=== PATIENT | male | born 1960 | race Hispanic/Latino ===

== ENCOUNTER 2016-12-28 22:49 | Inpatient (IN) | payer SELFPAY ==
[2016-12-28 22:49] VITALS: BMI 34.8
[2016-12-29] MEDS ORDERED: Lidocaine 2% Jelly (Uro-Jet) ONE (00:01)
--- NOTE | 2016-12-29 00:39 | C.PDOC ---
History Of Present Illness 56 y/o male presents to emergency department, status post TURP 1 month ago, with complaint of hematuria onset this evening. Patient states he was then suddenly unable to urinate. Patient also c/o mild lower abdominal pain. Otherwise, denies fever, chills, nausea, vomiting, diarrhea, or other associated symptoms. Time Seen by Provider: 12/28/16 23:33 Chief Complaint (Nursing): Male Genitourinary History Per: Patient History/Exam Limitations: no limitations Onset/Duration Of Symptoms: Hrs Current Symptoms Are (Timing): Still Present Quality Of Discomfort: "Pain" Associated Symptoms: Urinary Symptoms. denies: Fever, Nausea, Vomiting, Diarrhea Recent travel outside of the [place]: No Past Medical History Reviewed: Historical Data, Nursing Documentation, Vital Signs Vital Signs: Last Vital Signs Temp 97.3 F L 12/28/16 22:57 Pulse 62 12/29/16 01:04 Resp 18 12/29/16 01:04 BP 121/62 12/29/16 01:04 Pulse Ox 98 12/29/16 01:04 - Medical History PMH: Arthritis, HTN, Hypercholesterolemia Family History: States: Unknown Family Hx - Social History Hx Alcohol Use: Yes (quit 5 years ago) Hx Substance Use: No - Immunization History Hx Influenza Vaccination: No Review Of Systems Except As Marked, All Systems Reviewed And Found Negative. Constitutional: Negative for: Fever, Chills Gastrointestinal: Positive for: Abdominal Pain. Negative for: Nausea, Vomiting Genitourinary: Positive for: Hematuria Skin: Negative for: Rash Physical Exam - Physical Exam Appears: Non-toxic, No Acute Distress Skin: Normal Color, Warm, Dry Head: Atraumatic, Normacephalic Oral Mucosa: Moist Chest: Symmetrical Cardiovascular: Rhythm Regular Respiratory: Normal Breath Sounds, No Rales, No Rhonchi, No Wheezing Gastrointestinal/Abdominal: Soft, Tenderness (mild lower abdominal tenderness), No Guarding, No Rebound Male Genital: No Circumcised Extremity: Normal ROM Neurological/Psych: Oriented x3 ED Course And Treatment - Laboratory Results Result Diagrams: 12/29/16 00:41 12/29/16 00:41 ECG: Interpreted By Me ECG Rhythm: Sinus Rhythm ECG Interpretation: No Acute Changes Rate From EC O2 Sat by Pulse Oximetry: 96 (RA) Pulse Ox Interpretation: Normal Medical Decision Making Medical Decision Making: Labs ordered and reviewed. Sifuentes easily passed initialy by nursing. Sifuentes replaced with large 3 way by me. Bladder irrigated by me with 2L sterile water. Hematuria lessened but continues. Review of patients medications shows he is on Plavix, which he restarted last week. Discussed with Dr. Fischer, agrees with admission but advises ICU, CBI and plat tx, probable OR in the morning. Discussed with Dr. Weston and Dr. Martini who agree with plan. Disposition - Disposition Disposition: HOSPITALIZED Disposition Time: 01:35 Condition: SERIOUS - Clinical Impression Clinical Impression: Hematuria - Scribe Statement The provider has reviewed the documentation as recorded by the Jorge L Pina Provider Attestation: All medical record entries made by the Jorge L were at my direction and personally dictated by me. I have reviewed the chart and agree that the record accurately reflects my personal performance of the history, physical exam, medical decision making, and the department course for this patient. I have also personally directed, reviewed, and agree with the discharge instructions and disposition.
[2016-12-29 00:44] LABS: BASO # 0.1 K/uL (0.0-0.2); BASO % 0.7 % (0.0-2.0); EOS # 0.2 K/uL (0.0-0.7); EOS % 1.7 % (0.0-4.0); HEMATOCRIT 30.7 % (35.0-51.0); LYMPH # 1.3 K/uL (1.0-4.3); LYMPH % 8.6 % (20.0-40.0); MEAN CELL VOLUME 78.3 fL (80.0-94.0); MEAN CORPUSCULAR HEMOGLOBIN 24.9 pg (27.0-31.0); MEAN CORPUSCULAR HGB CONC 31.8 g/dL (33.0-37.0); MEAN PLATELET VOLUME 6.7 fL (7.2-11.7); MONO # 0.9 K/uL (0.0-0.8); PLATELET COUNT 261 K/uL (130-400); RED CELL DISTRIBUTION WIDTH 14.9 % (11.5-14.5); WHITE BLOOD COUNT 14.6 K/uL (4.8-10.8)
[2016-12-29 01:00] LABS: POTASSIUM 4.8 mmol/L (3.6-5.2)
[2016-12-29 01:03] LABS: ALB/GLOB RATIO 1.1 (1.0-2.1); BILIRUBIN,TOTAL 0.3 mg/dL (0.2-1.3); TOTAL PROTEIN 6.3 g/dL (6.3-8.3)
[2016-12-29 01:05] LABS: INR 1.1
[2016-12-29 02:15] LABS: NEUTROPHIL 93 % (50-75); TOTAL CELLS COUNTED 100
--- NOTE | 2016-12-29 02:23 | CP.PCM.HP ---
History of Present Illness - History of Present Illness History of Present Illness: CC: Hematuria, Urinary Retention PAtient is a 56 year old male who presents to emergency department c/ o hematuria and urinary retention. He reports TURP 1 month ago for enlargement of prostate causing occasional urinary retention. Patient reports slight hematuria after TURP procedure which resolved "a few days after the procedure." He reports sudden return of hematuria this evening. Patient states he then suddenly was unable to urinate, and this made him come to the ED. Patient also c /o mild lower abdominal pain, that improved with ellison placement. Patient was recently restarted on Plavix, which he has been on since stroke in 12/2015. Pt had been off Plavix after surgery but restarted last week. He otherwise, denies fever, chills, nausea, vomiting, diarrhea, or other associated symptoms. PMHx: Stroke (12/2015 - pt denies residual weakness), HTN, Hyperlipidemia PSHx: TURP (11/30/2016) Fam Hx: denies SHx: tobacco - denies; Alcohol: 2-5 beers ppd for ~20 years but quit 5 years ago ; denies drug use; works as mechanical engineering coop Allergies: NKA PMD: Dr. Newsome ( [place] ) Present on Admission - Present on Admission Any Indicators Present on Admission: No Review of Systems - Constitutional Constitutional: absent: Chills, Fever - EENT Eyes: absent: Blurred Vision Ears: absent: Decreased Hearing - Cardiovascular Cardiovascular: absent: Chest Pain, Chest Pain at Rest, Dyspnea, Dyspnea on Exertion, Leg Edema - Respiratory Respiratory: absent: Cough, Dyspnea, Hemoptysis, Dyspnea on Exertion - Gastrointestinal Gastrointestinal: Abdominal Pain (suprapubic abdominal pain). absent: Nausea, Vomiting - Genitourinary Genitourinary: Difficulty Urinating, Dysuria, Hematuria (gautam red blood with clots), Bladder Distension - Musculoskeletal Musculoskeletal: absent: Back Pain, Numbness, Tingling Past Patient History - Past Medical History & Family History Past Medical History?: Yes - Past Social History Smoking Status: Never Smoked - CARDIAC Hx Hypercholesterolemia: Yes Hx Hypertension: Yes - PULMONARY Hx Respiratory Disorders: No - NEUROLOGICAL Hx Neurological Disorder: Yes HX Cerebrovascular Accident: Yes (DECEMBER 2015) - HEENT Hx HEENT Problems: Yes Hx Cataracts: Yes - RENAL Hx Chronic Kidney Disease: No - ENDOCRINE/METABOLIC Hx Endocrine Disorders: No - HEMATOLOGICAL/ONCOLOGICAL Hx Blood Disorders: No - INTEGUMENTARY Hx Dermatological Problems: No - MUSCULOSKELETAL/RHEUMATOLOGICAL Hx Arthritis: Yes - GASTROINTESTINAL Hx Gastrointestinal Disorders: No - GENITOURINARY/GYNECOLOGICAL Hx Genitourinary Disorders: Yes Hx Prostate Problems: Yes - PSYCHIATRIC Hx Substance Use: No - SURGICAL HISTORY Hx Surgeries: Yes (TESTICULAR SX) - ANESTHESIA Hx Anesthesia: Yes Hx Anesthesia Reactions: No Hx Malignant Hyperthermia: No Meds Allergies/Adverse Reactions: Allergies Allergy/AdvReac Type Severity Reaction Status Date / Time No Known Allergies Allergy Verified 11/23/16 11:32 Physical Exam - Constitutional Appears: Non-toxic, No Acute Distress - Head Exam Head Exam: ATRAUMATIC, NORMAL INSPECTION, NORMOCEPHALIC - Eye Exam Eye Exam: EOMI, PERRL. absent: Conjunctival injection, Scleral icterus - ENT Exam ENT Exam: Mucous Membranes Moist - Respiratory Exam Respiratory Exam: Clear to Auscultation Bilateral, NORMAL BREATHING PATTERN - Cardiovascular Exam Cardiovascular Exam: REGULAR RHYTHM, +S1, +S2 - GI/Abdominal Exam GI & Abdominal Exam: Normal Bowel Sounds, Soft, Tenderness (suprapubic). absent : Mass Additional comments: 3 way ellison noted - Exam Exam: Bladder Distension - Extremities Exam Extremities exam: Positive for: normal inspection. Negative for: pedal edema - Back Exam Back exam: absent: CVA tenderness (L), CVA tenderness (R) - Neurological Exam Neurological exam: Alert, Oriented x3 - Psychiatric Exam Psychiatric exam: Normal Affect, Normal Mood - Skin Skin Exam: Normal Color, Warm Results - Vital Signs Recent Vital Signs: Last Vital Signs Temp 97.3 F L 12/28/16 22:57 Pulse 62 12/29/16 01:04 Resp 18 12/29/16 01:04 BP 121/62 12/29/16 01:04 Pulse Ox 96 12/29/16 01:36 - Labs Result Diagrams: 12/29/16 06:00 12/29/16 06:00 Labs: Laboratory Results - last 24 hr 12/29/16 01:17 Blood Type O POSITIVE Antibody Screen Negative Assessment & Plan - Assessment and Plan (Free Text) Assessment: Hematuria Admit to ICU, all MGMT per ICU team Recent hx of TURP procedure (12/2016) Gautam, dark blood with clots in ellison NPO for possible Urologic procedure H/H: 9.8/30.7 on admission f/u Am labs Type and Cross Transfused one unit of PRBCs Urology consult: Dr. Fischer, help appreciated - f/u reccs Rocephin 1gm IV daily NS @ 100 cc/hr Continuous bladder irrigation BPH Continue home meds: Flomax 0.4 mg PO BID Finasteride 5mg PO Daily Elevated creatinine BUN/CR: 56/3.1 Family will bring recent labwork from outside facility to compare Hold BP meds Monitor Hypertension Pt normotensive on presentation Continue home med: Labetalol 200mg PO BID HOLD home meds: - Amlodipine 10mg PO Daily - Losartan 100mg PO Daily - Isosorbide Mononitrate 30 mg Daily NS @ 100 cc/hr Hx of stroke HOLD Plavix 75mg PO daily Prophylaxis HOLD Heparin 5000 units SC Q8H Protonix 40mg IV daily
--- NOTE | 2016-12-29 03:07 | CP.CCUPN ---
CCU Subjective - Physician Review Events Since Last Encounter (Free Text): 12/29/16 07:45 The Patient was seen and examined at the bedside, Medical records reviewed, all clinical/lab/hemodynamic/radiographic data were reviewed and management issues were discussed and formulated, 56 Y/O M with PMHx of HTN, BPH and S/p CVA in 12/2011 with no residual weakness who presents to emergency department c/o hematuria that suddenly started last evening Patient with BPH S/p TURP 1 month ago for and urinary retention, He had hematuria after the procedure but resolved few days later Patient is on Plavix probably fot the history of stroke In the ER, Pt hemodynamically, No CP/SBP CBI initiated CCU Objective - Vital Signs / Intake & Output Vital Signs (Last 4 hours): Vital Signs Pulse Resp BP Pulse Ox 12/29/16 01:36 96 12/29/16 01:04 62 18 121/62 98 - Physical Exam Head: Positive for: Atraumatic, Normocephalic. Negative for: Tenderness, Contusion Pupils: Positive for: PERRL. Negative for: Sluggish, Non-Reactive Extroacular Muscles: Positive for: EOMI. Negative for: Gaze Palsy, Entrapment Conjunctiva: Positive for: Normal. Negative for: Injected, Icteric Mouth: Positive for: Moist Mucous Membranes Pharnyx: Positive for: Normal. Negative for: ERYTHEMA Nose (Internal): Positive for: Normal Inspection Neck: Positive for: Normal Range of Motion, Trachea Midline. Negative for: Meningeal Signs, MIDLINE TENDERNESS, Paraspinal Tenderness, JVD, Lymphadenopathy , Bruit, Other Respiratory/Chest: Positive for: Clear to Auscultation, Good Air Exchange. Negative for: Respiratory Distress, Accessory Muscle Use, Wheezes, Rales, Rhonchi Cardiovascular: Positive for: Regular Rate and Rhythm, Normal S1, S2, Peripheal Pulses Present. Negative for: Murmurs, Irregular Rhythm, Tachycardic, Bradycardic Abdomen: Positive for: Normal Bowel Sounds. Negative for: Tenderness, Distention, Peritoneal Signs - Patient Studies Lab Studies: Lab Studies 12/29/16 Range/Units 01:17 Blood Type O POSITIVE Antibody Screen Negative Laboratory Results - last 24 hr 12/29/16 01:17 Blood Type O POSITIVE Antibody Screen Negative Review of Systems - Cardiovascular Cardiovascular: absent: As Per HPI, Acrocyanosis, Chest Pain, Chest Pain at Rest , Chest Pain with Activity, Claudication, Diaphoresis, Dyspnea, Dyspnea on Exertion, Edema, Irregular Heart Rhythm, Pain Radiating to Arm/Neck/Jaw, Leg Edema, Leg Ulcers, Lightheadedness, Orthopnea, Palpitations, Paroxysmal Nocturnal Dyspnea, Pedal Edema, Radiating Pain, Rapid Heart Rate, Slow Heart Rate, Syncope, Other, UNREMARKABLE - Respiratory Respiratory: absent: As Per HPI, Cough, Dyspnea, Hemoptysis, Dyspnea on Exertion , Wheezing, Snoring, Stridor, Pain on Inspiration, Chest Congestion, Excessive Mucous Production, Change in Mucous Color, Pain with Coughing, Other, UNREMARKABLE Assessment/Plan (1) Hematuria Current Visit: Yes Status: Acute (2) HTN (hypertension) Current Visit: Yes Status: Acute (3) History of stroke Current Visit: Yes Status: Acute
[2016-12-29] MEDS: Sodium Chloride 0.9% 1,000 ML IV SCH ×3 (04:26→23:46)
[2016-12-29 06:42] LABS: BASO % 0.3 % (0.0-2.0); EOS # 0.1 K/uL (0.0-0.7); EOS % 0.5 % (0.0-4.0); LYMPH # 1.1 K/uL (1.0-4.3); LYMPH % 7.7 % (20.0-40.0); MEAN CELL VOLUME 78.9 fL (80.0-94.0); MEAN CORPUSCULAR HEMOGLOBIN 25.3 pg (27.0-31.0); MEAN PLATELET VOLUME 7.3 fL (7.2-11.7); MONO # 0.6 K/uL (0.0-0.8); MONO % 4.6 % (0.0-10.0); PLATELET COUNT 261 K/uL (130-400); RED CELL DISTRIBUTION WIDTH 15.1 % (11.5-14.5); WHITE BLOOD COUNT 13.8 K/uL (4.8-10.8)
[2016-12-29 06:44] LABS: INR 1.1
[2016-12-29 06:49] LABS: POTASSIUM 5.4 mmol/L (3.6-5.2)
[2016-12-29 06:51] LABS: ALB/GLOB RATIO 1.3 (1.0-2.1); BILIRUBIN,TOTAL 0.4 mg/dL (0.2-1.3); PHOSPHOROUS 5.1 mg/dL (2.5-4.5); TOTAL PROTEIN 6.3 g/dL (6.3-8.3)
[2016-12-29 06:52] LABS: MAGNESIUM 2.1 mg/dL (1.6-2.3)
[2016-12-29] MEDS: cefTRIAXone IV 1 gm in Dextros 50 ML IVPB SCH (07:45)
[2016-12-29 07:49] LABS: BASOPHIL 1 % (0-2); NEUTROPHIL 85 % (50-75); TOTAL CELLS COUNTED 100
[2016-12-29] MEDS ORDERED: Labetalol 25mg/5ml Syringe IVP ONE (09:40)
[2016-12-29 10:12] LABS: PLT BASE COUNT 271 K/uL
[2016-12-29 10:13] LABS: FUNCTIONING PLTS 81 K/uL; PLT(ADP) 190 K/uL
[2016-12-29 12:18] LABS: BASO # 0.1 K/uL (0.0-0.2); BASO % 0.3 % (0.0-2.0); EOS # 0.1 K/uL (0.0-0.7); EOS % 0.4 % (0.0-4.0); LYMPH # 1.1 K/uL (1.0-4.3); MEAN CELL VOLUME 78.7 fL (80.0-94.0); MEAN CORPUSCULAR HEMOGLOBIN 24.8 pg (27.0-31.0); MEAN CORPUSCULAR HGB CONC 31.6 g/dL (33.0-37.0); MONO # 1.1 K/uL (0.0-0.8); PLATELET COUNT 279 K/uL (130-400); RED CELL DISTRIBUTION WIDTH 15.2 % (11.5-14.5); WHITE BLOOD COUNT 15.5 K/uL (4.8-10.8)
[2016-12-29 12:41] LABS: EOSINOPHIL 1 % (0-4); NEUTROPHIL 90 % (50-75); TOTAL CELLS COUNTED 100
[2016-12-29] MEDS ORDERED: Metoprolol 1 mg/ml Inj IVP ONE (14:34)
[2016-12-29] MEDS ORDERED: Midazolam 2 MG/2 ML VIAL ONE (16:04)
[2016-12-29] MEDS ORDERED: Propofol 10 mg/ml Inj (20 ML) ONE (16:04)
[2016-12-29] MEDS ORDERED: Phenylephrine 10 mg/ml Inj ONE (16:06)
--- NOTE | 2016-12-29 17:05 | PCM.URO ---
Urology Progress Note - Objective Lab Results Last 24 Hours: Laboratory Results - last 24 hr 12/29/16 12/29/16 12/29/16 01:17 06:00 10:01 WBC 13.8 H RBC 3.80 L Hgb 9.6 L Hct 30.0 L MCV 78.9 L MCH 25.3 L MCHC 32.0 L RDW 15.1 H Plt Count 261 MPV 7.3 Neut % (Auto) 86.9 H Lymph % (Auto) 7.7 L [place] % (Auto) 4.6 Eos % (Auto) 0.5 Baso % (Auto) 0.3 Neut # 12.0 H Lymph # 1.1 [place] # 0.6 Eos # 0.1 Baso # 0.0 Neutrophils % (Manual) 85 H Band Neutrophils % 3 H Lymphocytes % (Manual) 8 L Monocytes % (Manual) 3 Eosinophils % (Manual) Basophils % (Manual) 1 Platelet Estimate Normal Poikilocytosis (manual Slight Anisocytosis (manual) Slight Ovalocytes Slight Raoul Cells Slight PT 12.3 H INR 1.1 APTT 26 Plt Function Assay 81 Sodium 136 Potassium 5.4 H Chloride 102 Carbon Dioxide 18 L Anion Gap 21 H BUN 56 H Creatinine 3.1 H Est GFR ( Amer) 25 Est GFR (Non-Af Amer) 21 Random Glucose 107 Calcium 8.0 L Phosphorus 5.1 H Magnesium 2.1 Total Bilirubin 0.4 AST 21 ALT 19 L D Alkaline Phosphatase 57 Total Protein 6.3 Albumin 3.5 Globulin 2.8 Albumin/Globulin Ratio 1.3 Blood Type O POSITIVE Antibody Screen Negative 12/29/16 12:15 WBC 15.5 H RBC 3.05 L Hgb 7.6 L D Hct 24.0 L MCV 78.7 L MCH 24.8 L MCHC 31.6 L RDW 15.2 H Plt Count 279 MPV 7.0 L Neut % (Auto) 85.3 H Lymph % (Auto) 7.0 L [place] % (Auto) 7.0 Eos % (Auto) 0.4 Baso % (Auto) 0.3 Neut # 13.3 H Lymph # 1.1 [place] # 1.1 H Eos # 0.1 Baso # 0.1 Neutrophils % (Manual) 90 H Band Neutrophils % 1 Lymphocytes % (Manual) 7 L Monocytes % (Manual) 1 Eosinophils % (Manual) 1 Basophils % (Manual) Platelet Estimate Normal Poikilocytosis (manual Slight Anisocytosis (manual) Slight Ovalocytes Slight [place] Cells PT INR APTT Plt Function Assay Sodium Potassium Chloride Carbon Dioxide Anion Gap BUN Creatinine Est GFR ( Amer) Est GFR (Non-Af Amer) Random Glucose Calcium Phosphorus Magnesium Total Bilirubin AST ALT Alkaline Phosphatase Total Protein Albumin Globulin Albumin/Globulin Ratio Blood Type Antibody Screen Intake & Output: Intake & Output 12/28/16 12/29/16 12/29/16 18:59 06:59 18:59 Intake Total 800 23792 Output Total 925 820 Balance -125 61047 Weight 220 lb 6 oz Intake: Intake, IV Amount 500 1302 Left Hand 400 100 Right Hand 902 Right Wrist 300 Left Forearm 100 Oral 0 Blood Product 577 Apheresis Platelets Acda 577 Lr Unit [id number] Other 300 50573 Apheresis Platelets Acda 30 Lr Unit [id number] Output: Urine 925 820 3-way Urethral 800 0 Other: Voiding Method 3-way Sifuentes with CBI # Bowel Movements 0 Vital Signs: Vital Signs - 24 hr 12/29/16 12/29/16 12/29/16 01:04 01:36 03:23 Temperature 97.6 F Pulse Rate 62 65 Pulse Rate [ Bilateral * Pedal & Posterior Tibial] Respiratory 18 18 Rate Blood Pressure 121/62 110/69 O2 Sat by Pulse 98 96 96 Oximetry 12/29/16 12/29/16 12/29/16 03:41 03:53 04:00 Temperature Pulse Rate 50 L 62 Pulse Rate [ 58 L Bilateral * Pedal & Posterior Tibial] Respiratory 20 16 Rate Blood Pressure 121/79 124/83 O2 Sat by Pulse 97 Oximetry 12/29/16 12/29/16 12/29/16 05:00 05:04 06:00 Temperature 97.6 F Pulse Rate 56 L 60 64 Pulse Rate [ Bilateral * Pedal & Posterior Tibial] Respiratory 20 21 15 Rate Blood Pressure 128/74 128/74 O2 Sat by Pulse Oximetry 12/29/16 12/29/16 12/29/16 06:01 07:00 07:25 Temperature Pulse Rate 68 67 Pulse Rate [ Bilateral * Pedal & Posterior Tibial] Respiratory 14 15 Rate Blood Pressure 131/74 130/69 O2 Sat by Pulse Oximetry 12/29/16 12/29/16 12/29/16 08:00 09:00 09:20 Temperature 97.8 F Pulse Rate 76 79 77 Pulse Rate [ Bilateral * Pedal & Posterior Tibial] Respiratory 15 17 24 Rate Blood Pressure 131/87 146/89 177/105 H O2 Sat by Pulse 96 Oximetry 12/29/16 12/29/16 12/29/16 09:34 09:35 09:49 Temperature 98.0 F Pulse Rate 81 80 Pulse Rate [ Bilateral * Pedal & Posterior Tibial] Respiratory 22 19 Rate Blood Pressure 168/95 H 149/86 O2 Sat by Pulse Oximetry 12/29/16 12/29/16 12/29/16 09:50 10:01 10:04 Temperature 97.7 F Pulse Rate 77 71 75 Pulse Rate [ Bilateral * Pedal & Posterior Tibial] Respiratory 15 12 16 Rate Blood Pressure 149/86 119/80 O2 Sat by Pulse Oximetry 12/29/16 12/29/16 12/29/16 10:11 10:19 10:20 Temperature 97.7 F Pulse Rate 76 76 74 Pulse Rate [ Bilateral * Pedal & Posterior Tibial] Respiratory 12 19 10 L Rate Blood Pressure 119/80 122/72 122/72 O2 Sat by Pulse Oximetry 12/29/16 12/29/16 12/29/16 10:29 10:35 10:49 Temperature 97.8 F Pulse Rate 79 86 81 Pulse Rate [ Bilateral * Pedal & Posterior Tibial] Respiratory 18 22 20 Rate Blood Pressure 109/78 141/96 H O2 Sat by Pulse Oximetry 12/29/16 12/29/16 12/29/16 10:50 11:02 11:05 Temperature Pulse Rate 86 80 82 Pulse Rate [ Bilateral * Pedal & Posterior Tibial] Respiratory 20 21 20 Rate Blood Pressure 141/96 H 153/80 H O2 Sat by Pulse Oximetry 12/29/16 12/29/16 12/29/16 11:20 11:35 11:49 Temperature Pulse Rate 85 83 75 Pulse Rate [ Bilateral * Pedal & Posterior Tibial] Respiratory 21 22 19 Rate Blood Pressure 158/92 H 142/89 O2 Sat by Pulse Oximetry 12/29/16 12/29/16 12/29/16 11:50 12:00 12:05 Temperature 98.2 F Pulse Rate 85 82 Pulse Rate [ Bilateral * Pedal & Posterior Tibial] Respiratory 17 17 Rate Blood Pressure 137/95 H 163/94 H O2 Sat by Pulse 97 Oximetry 12/29/16 12/29/16 12/29/16 12:20 12:35 12:50 Temperature 98.0 F Pulse Rate 80 80 81 Pulse Rate [ Bilateral * Pedal & Posterior Tibial] Respiratory 18 20 21 Rate Blood Pressure 162/97 H 165/100 H 170/98 H O2 Sat by Pulse Oximetry 12/29/16 12/29/16 12/29/16 13:00 13:05 13:07 Temperature 98.8 F Pulse Rate 81 88 Pulse Rate [ Bilateral * Pedal & Posterior Tibial] Respiratory 22 20 Rate Blood Pressure 187/101 H O2 Sat by Pulse 96 Oximetry 12/29/16 12/29/16 12/29/16 13:20 13:35 13:50 Temperature 98.9 F 98.8 F Pulse Rate 83 85 83 Pulse Rate [ Bilateral * Pedal & Posterior Tibial] Respiratory 18 19 19 Rate Blood Pressure 184/98 H 176/94 H 180/92 H O2 Sat by Pulse 97 96 Oximetry 12/29/16 12/29/16 12/29/16 14:00 14:05 14:20 Temperature 98.8 F Pulse Rate 83 83 81 Pulse Rate [ Bilateral * Pedal & Posterior Tibial] Respiratory 18 16 18 Rate Blood Pressure 181/87 H 187/85 H O2 Sat by Pulse 97 Oximetry 12/29/16 12/29/16 12/29/16 14:35 14:50 15:00 Temperature 98.6 F 98.8 F Pulse Rate 89 96 H 87 Pulse Rate [ Bilateral * Pedal & Posterior Tibial] Respiratory 19 22 22 Rate Blood Pressure 176/95 H 171/91 H O2 Sat by Pulse 97 96 Oximetry 12/29/16 15:05 Temperature Pulse Rate 92 H Pulse Rate [ Bilateral * Pedal & Posterior Tibial] Respiratory 11 L Rate Blood Pressure 148/95 H O2 Sat by Pulse Oximetry
[2016-12-29] MEDS: Metoprolol 1 mg/ml Inj IVP SCH (18:26)
--- NOTE | 2016-12-29 19:32 | CON ---
DATE: 12/29/2016 REASON FOR ADMISSION: Gross hematuria. HISTORY OF PRESENT ILLNESS: A very pleasant gentleman. In the end of 11/2016 I did a PVP GreenLight laser TURP. At that time, we had stopped his Plavix and subsequently he did very well. We took out his Sifuentes. He was urinating. Everything was good in speaking to the patient's daughter. Then today , at 2 in the evening hours, the daughter called me that he was bleeding out of nowhere. With furthe r questioning though, he had been having a drink or 2 and then he was having difficulty moving his jonatan wels and ran into constipation, and then when he was pushing upon his bowels he had bleeding from his prostate. He is now being admitted. I spoke to the ER. See the plan listed below. PAST MEDICAL AND SURGICAL HISTORY: Otherwise, no change. REVIEW OF SYSTEMS: Listed above. He is a relatively healthy gentleman in no apparent distress. Vit al signs have been normal. PHYSICAL EXAMINATION: GENERAL: A well-nourished male in no apparent distress. VITAL SIGNS: Noted. GENITOURINARY: We then inserted a Sifuentes catheter via the urethra to see if this would assist. He is just having a tremendous amount of bleeding noted. DIAGNOSES: Gross hematuria in the postoperative period after a PVP GreenLight transurethral resectio n of the prostate. The patient resumed his medications. PLAN: It is mostly a coagulopathy issue. Bleeding is going to be from the prostate in origin. If w e cannot stop it, we will consider other options; will consider cystoscopy, evacuation of clots. The n will consider other options of cauterization, fulgurations, etc. Then again, there are other measu res. Sometimes even necessary removing the whole prostate. There are a lot of options. But it is d efinitely very greatly concerning. I explained this to the daughter. That is why we had him come in . Bleeding in this postop period when you on Plavix is very concerning, especially after having not ble d. ICU monitoring. My recommendation is for transfusions of blood products of packed red blood cells an d also transfusion of platelets specifically, especially given his history. Then we will continue to monitor patient. Margarito Fischer MD cc: [phone] TT: 12/29/2016 19:32:02 Confirmation # [id number] Dictation # [id number] mn
--- NOTE | 2016-12-29 19:43 | OP ---
PROCEDURE DATE: 12/29/2016 PREOPERATIVE DIAGNOSES: Gross hematuria, bleeding diathesis, prostatic bleeding, anemia, clot urinar y retention. POSTOPERATIVE DIAGNOSES: Gross hematuria, bleeding diathesis, prostatic bleeding, anemia, clot urina ry retention. PROCEDURE: Cystoscopy and evacuation of clots, attempted fulguration, but no specific bleeding sites could be identified; washout of clots and insertion of a Sifuentes catheter with continuous bladder irri gation drainage. COMPLICATIONS: There were no complications. FINDINGS: Normal anterior urethra, no strictures of the healing prostatic tissue, fairly easy to get the scope in; a tremendous amount of bleeding and not able to get a good clear visualization a nd the bladder mucosa again was very hard to identify, it is there, just a tremendous amount of blood . At the termination of the procedure, the patient still has bleeding, but we put a CBI Sifuentes with 40-5 0 mL in the balloon and we drained it clear. Even though it was grossly bloody, it eventually pinked out. INDICATIONS: See the history and physical and consultation. This is a very pleasant gentleman who h ad a GreenLight laser TURP, who came in now and we resumed his Plavix where he also was drinking a li ttle and then he was running into some constipation and then he started bleeding. He had his operati on about 11/30; today is 12/29 so it is literally about 4 weeks ago where we did the procedure, a PVP G reenLight laser TURP, and he was doing well. I had spoken to the patient a couple of times after we removed his catheter initially. Last night I received a phone call, see the consultation note, a eliot ne call from the daughter that he was bleeding. They brought him to the hospital immediately. Plavi x bleeding after TURP is sometimes very, very concerning obviously. I had recommended transfusions of both platelets and blood. We now brought him here to the OR. The patient has been bleeding for the day, although it looks like it is pantry cook than before. The patient was also seen by this morning. We discussed the o ptions with the patient and the daughter and the risks, benefits and alternatives. He is here now fo r the above procedure. PROCEDURE: After obtaining informed consent, the patient was placed on the table, routine monitors p laced and a timeout was called to confirm the patient and positioning. We removed the old Sifuentes catheter and we inserted a new catheter. There was just a tremendous amount of blood. What we did was we drained the bladder, we irrigated it out, we inspected it carefully and there was really no good bleeding site per se, it was just raw. It looks like otherwise, except for this redne ss and I took multiple pictures, that it is normal postop healing. So we irrigated a tremendous amount of bleeding noted, some with clots. We now inserted a 3-way Sifuentes catheter, 24-Vincentian, and left it with and irrigated again. It is slightly pantry cook in color and appearance. I do want to mention we did do a rectal exam. His abdomen is difficult to evaluate for distention se condary to body habitus, but the catheter is certainly in place and draining and irrigates well both ways, but we will need to monitor it and keep an eye on it. DIAGNOSES: Gross hematuria. The patient underwent a cystoscopy with evacuation of clots. There was not one specific area that we could fulgurate, and therefore, we did not. The patient tolerated the procedure well without complication. I have spoken to the ICU as well. Our recommendation is clear to transfuse platelets, to transfuse b lood products and not much more urologically can be done. The patient is off his Plavix. There is a report in the computer about normal platelet function, so we have to just keep an eye on i t for now. If it does not resolve will need to very carefully reassess bleeding sources. In fact, I will be ordering this as well and then further plans will follow. Margarito Fischer MD cc: [phone] TT: 12/29/2016 19:43:20 gale
[2016-12-29 23:00] LABS: BASO # 0.1 K/uL (0.0-0.2); BASO % 0.7 % (0.0-2.0); EOS % 0.3 % (0.0-4.0); HEMATOCRIT 25.1 % (35.0-51.0); LYMPH # 1.3 K/uL (1.0-4.3); LYMPH % 11.9 % (20.0-40.0); MEAN CELL VOLUME 79.7 fL (80.0-94.0); MEAN CORPUSCULAR HEMOGLOBIN 25.8 pg (27.0-31.0); MEAN CORPUSCULAR HGB CONC 32.4 g/dL (33.0-37.0); MEAN PLATELET VOLUME 7.1 fL (7.2-11.7); MONO # 1.1 K/uL (0.0-0.8); MONO % 9.9 % (0.0-10.0); NRBC % 0.1 % (0.0-2.0); RED CELL DISTRIBUTION WIDTH 14.8 % (11.5-14.5)
[2016-12-29 23:13] LABS: POTASSIUM 5.1 mmol/L (3.6-5.2)
[2016-12-29 23:15] LABS: BILIRUBIN,TOTAL 0.5 mg/dL (0.2-1.3)
[2016-12-29 23:16] LABS: ALB/GLOB RATIO 1.2 (1.0-2.1); CALCIUM 7.4 mg/dl (8.6-10.4); PHOSPHOROUS 6.3 mg/dL (2.5-4.5); TOTAL PROTEIN 5.3 g/dL (6.3-8.3)
[2016-12-29 23:17] LABS: MAGNESIUM 2.1 mg/dL (1.6-2.3)
[2016-12-30] MEDS: Metoprolol 1 mg/ml Inj IVP SCH ×5 (00:32→23:20)
[2016-12-30] MEDS: cefTRIAXone IV 1 gm in Dextros 50 ML IVPB SCH (04:16)
[2016-12-30 06:22] LABS: BASO # 0.1 K/uL (0.0-0.2); BASO % 0.5 % (0.0-2.0); EOS # 0.2 K/uL (0.0-0.7); EOS % 1.7 % (0.0-4.0); HEMATOCRIT 24.4 % (35.0-51.0); LYMPH # 1.6 K/uL (1.0-4.3); LYMPH % 14.5 % (20.0-40.0); MEAN CELL VOLUME 78.9 fL (80.0-94.0); MEAN PLATELET VOLUME 7.2 fL (7.2-11.7); MONO # 1.1 K/uL (0.0-0.8); MONO % 9.4 % (0.0-10.0); RED CELL DISTRIBUTION WIDTH 15.4 % (11.5-14.5); WHITE BLOOD COUNT 11.3 K/uL (4.8-10.8)
[2016-12-30 06:28] LABS: POTASSIUM 4.3 mmol/L (3.6-5.2)
[2016-12-30 06:31] LABS: BILIRUBIN,TOTAL 0.3 mg/dL (0.2-1.3); PHOSPHOROUS 5.4 mg/dL (2.5-4.5); TOTAL PROTEIN 5.2 g/dL (6.3-8.3)
[2016-12-30 06:32] LABS: CALCIUM 7.2 mg/dl (8.6-10.4); MAGNESIUM 2.1 mg/dL (1.6-2.3)
[2016-12-30] MEDS: Sodium Chloride 0.9% 1,000 ML IV SCH ×3 (09:27→23:30)
--- NOTE | 2016-12-30 17:04 | CP.CCUPN ---
CCU Subjective - Physician Review Events Since Last Encounter (Free Text): 12/30/16 17:00 patient is clinically stable, doing exercises in his room. CCU Objective - Vital Signs / Intake & Output Vital Signs (Last 4 hours): Vital Signs Pulse Resp BP Pulse Ox 12/30/16 15:07 71 21 169/84 H 96 12/30/16 15:00 70 22 97 12/30/16 14:07 64 19 129/52 L 95 12/30/16 14:00 69 19 93 L 12/30/16 13:07 81 14 160/62 H 98 12/30/16 13:06 94 H 15 95 Intake and Output (Last 8hrs): Intake & Output 12/30/16 12/30/16 12/30/16 06:59 14:59 22:59 Intake Total 5690 35229 2900 Output Total 1000 1010 250 Balance 4690 74360 2650 Weight 220 lb 12.8 oz Intake: Intake, IV Amount 785 700 Right Hand 285 Right Wrist 500 700 Oral 360 740 Blood Product 285 Apheresis Rbc Cp2d As3 Lr 285 1st Unit [id number] Other 4260 70711 2900 Apheresis Rbc Cp2d As3 Lr 60 1st Unit [id number] Output: Urine 1000 1010 250 Other: # Bowel Movements 0 0 - Physical Exam Head: Positive for: Atraumatic, Normocephalic. Negative for: Tenderness, Contusion Pupils: Positive for: PERRL. Negative for: Sluggish, Non-Reactive Extroacular Muscles: Positive for: EOMI. Negative for: Gaze Palsy, Entrapment Conjunctiva: Positive for: Normal. Negative for: Injected, Icteric Mouth: Positive for: Moist Mucous Membranes Pharnyx: Positive for: Normal. Negative for: ERYTHEMA Nose (Internal): Positive for: Normal Inspection Neck: Positive for: Normal Range of Motion, Trachea Midline. Negative for: Meningeal Signs, MIDLINE TENDERNESS, Paraspinal Tenderness, JVD, Lymphadenopathy , Bruit, Other Respiratory/Chest: Positive for: Clear to Auscultation, Good Air Exchange. Negative for: Respiratory Distress, Accessory Muscle Use, Wheezes, Rales, Rhonchi Cardiovascular: Positive for: Regular Rate and Rhythm, Normal S1, S2, Peripheal Pulses Present. Negative for: Murmurs, Irregular Rhythm, Tachycardic, Bradycardic Abdomen: Positive for: Normal Bowel Sounds. Negative for: Tenderness, Distention, Peritoneal Signs - Medications Active Medications: Active Medications Generic Name Dose Route Start Last Admin Trade Name Yamileth PRN Reason Stop Dose Admin Finasteride 5 mg 12/29/16 10:00 12/30/16 09:27 Proscar PO 5 mg DAILY [facility] Administration Sodium Chloride 1,000 mls @ 100 mls/hr 12/29/16 03:15 12/30/16 12:40 Sodium Chloride 0.9% IV 100 mls/hr .Q10H [facility] Administration Ceftriaxone Sodium 50 mls @ 100 mls/hr 12/29/16 05:00 12/30/16 04:16 Rocephin Iv 1 Gm Duplex IVPB 100 mls/hr Q24H [facility] Administration Labetalol HCl 200 mg 12/29/16 10:00 12/30/16 09:28 Trandate PO 200 mg BID [facility] Administration Metoprolol Tartrate 5 mg 12/29/16 18:15 12/30/16 12:56 Lopressor IVP 5 mg Q6H [facility] Administration Pantoprazole Sodium 40 mg 12/29/16 10:15 12/30/16 09:27 Protonix Inj IVP 40 mg DAILY [facility] Administration Tamsulosin HCl 0.4 mg 12/29/16 10:00 12/30/16 09:27 Flomax PO 0.4 mg DAILY [facility] Administration - Patient Studies Lab Studies: Microbiology Studies 12/29/16 03:42 MRSA Culture (Admit) - Final Nose MRSA NOT DETECTED Lab Studies 12/30/16 12/30/16 12/29/16 Range/Units 06:15 06:11 22:50 WBC 11.3 H 11.0 H (4.8-10.8) K/uL RBC 3.09 L 3.15 L (4.40-5.90) Mil/uL Hgb 8.1 L 8.1 L (12.0-18.0) g/dL Hct 24.4 L 25.1 L (35.0-51.0) % MCV 78.9 L 79.7 L (80.0-94.0) fL MCH 26.0 L 25.8 L (27.0-31.0) pg MCHC 33.0 32.4 L (33.0-37.0) g/dL RDW 15.4 H 14.8 H (11.5-14.5) % Plt Count 212 227 (130-400) K/uL MPV 7.2 7.1 L (7.2-11.7) fL Neut % (Auto) 73.9 77.2 H (50.0-75.0) % Lymph % (Auto) 14.5 L 11.9 L (20.0-40.0) % [place] % (Auto) 9.4 9.9 (0.0-10.0) % Eos % (Auto) 1.7 0.3 (0.0-4.0) % Baso % (Auto) 0.5 0.7 (0.0-2.0) % Neut # 8.3 H 8.5 H (1.8-7.0) K/uL Lymph # 1.6 1.3 (1.0-4.3) K/uL [place] # 1.1 H 1.1 H (0.0-0.8) K/uL Eos # 0.2 0.0 (0.0-0.7) K/uL Baso # 0.1 0.1 (0.0-0.2) K/uL Sodium 138 136 (132-148) mmol/L Potassium 4.3 5.1 (3.6-5.2) mmol/L Chloride 106 102 (98-107) mmol/L Carbon Dioxide 22 22 (22-30) mmol/L Anion Gap 14 17 (10-20) BUN 54 H 59 H (9-20) mg/dL Creatinine 3.1 H 3.5 H (0.8-1.5) MG/DL Est GFR ( Amer) 25 22 Est GFR (Non-Af Amer) 21 18 Random Glucose 87 101 (75-110) mg/dL Calcium 7.2 L 7.4 L (8.6-10.4) mg/dl Phosphorus 5.4 H 6.3 H (2.5-4.5) mg/dL Magnesium 2.1 2.1 (1.6-2.3) mg/dL Total Bilirubin 0.3 0.5 (0.2-1.3) mg/dL AST 14 L 16 L D (17-59) U/L ALT 30 18 L (21-72) U/L Alkaline Phosphatase 43 44 (38-126) U/L Total Protein 5.2 L 5.3 L (6.3-8.3) g/dL Albumin 2.6 L 2.9 L (3.5-5.0) g/dL Globulin 2.6 2.3 (2.2-3.9) gm/dL Albumin/Globulin Ratio 1.0 1.2 (1.0-2.1) Blood Type Antibody Screen 12/29/16 Range/Units 01:17 WBC (4.8-10.8) K/uL RBC (4.40-5.90) Mil/uL Hgb (12.0-18.0) g/dL Hct (35.0-51.0) % MCV (80.0-94.0) fL MCH (27.0-31.0) pg MCHC (33.0-37.0) g/dL RDW (11.5-14.5) % Plt Count (130-400) K/uL MPV (7.2-11.7) fL Neut % (Auto) (50.0-75.0) % Lymph % (Auto) (20.0-40.0) % [place] % (Auto) (0.0-10.0) % Eos % (Auto) (0.0-4.0) % Baso % (Auto) (0.0-2.0) % Neut # (1.8-7.0) K/uL Lymph # (1.0-4.3) K/uL [place] # (0.0-0.8) K/uL Eos # (0.0-0.7) K/uL Baso # (0.0-0.2) K/uL Sodium (132-148) mmol/L Potassium (3.6-5.2) mmol/L Chloride (98-107) mmol/L Carbon Dioxide (22-30) mmol/L Anion Gap (10-20) BUN (9-20) mg/dL Creatinine (0.8-1.5) MG/DL Est GFR ( Amer) Est GFR (Non-Af Amer) Random Glucose (75-110) mg/dL Calcium (8.6-10.4) mg/dl Phosphorus (2.5-4.5) mg/dL Magnesium (1.6-2.3) mg/dL Total Bilirubin (0.2-1.3) mg/dL AST (17-59) U/L ALT (21-72) U/L Alkaline Phosphatase (38-126) U/L Total Protein (6.3-8.3) g/dL Albumin (3.5-5.0) g/dL Globulin (2.2-3.9) gm/dL Albumin/Globulin Ratio (1.0-2.1) Blood Type O POSITIVE Antibody Screen Negative Laboratory Results - last 24 hr 12/29/16 12/29/16 12/30/16 01:17 22:50 06:11 WBC 11.0 H 11.3 H RBC 3.15 L 3.09 L Hgb 8.1 L 8.1 L Hct 25.1 L 24.4 L MCV 79.7 L 78.9 L MCH 25.8 L 26.0 L MCHC 32.4 L 33.0 RDW 14.8 H 15.4 H Plt Count 227 212 MPV 7.1 L 7.2 Neut % (Auto) 77.2 H 73.9 Lymph % (Auto) 11.9 L 14.5 L [place] % (Auto) 9.9 9.4 Eos % (Auto) 0.3 1.7 Baso % (Auto) 0.7 0.5 Neut # 8.5 H 8.3 H Lymph # 1.3 1.6 [place] # 1.1 H 1.1 H Eos # 0.0 0.2 Baso # 0.1 0.1 Sodium 136 Potassium 5.1 Chloride 102 Carbon Dioxide 22 Anion Gap 17 BUN 59 H Creatinine 3.5 H Est GFR ( Amer) 22 Est GFR (Non-Af Amer) 18 Random Glucose 101 Calcium 7.4 L Phosphorus 6.3 H Magnesium 2.1 Total Bilirubin 0.5 AST 16 L D ALT 18 L Alkaline Phosphatase 44 Total Protein 5.3 L Albumin 2.9 L Globulin 2.3 Albumin/Globulin Ratio 1.2 Blood Type O POSITIVE Antibody Screen Negative 12/30/16 06:15 WBC RBC Hgb Hct MCV MCH MCHC RDW Plt Count MPV Neut % (Auto) Lymph % (Auto) [place] % (Auto) Eos % (Auto) Baso % (Auto) Neut # Lymph # [place] # Eos # Baso # Sodium 138 Potassium 4.3 Chloride 106 Carbon Dioxide 22 Anion Gap 14 BUN 54 H Creatinine 3.1 H Est GFR ( Amer) 25 Est GFR (Non-Af Amer) 21 Random Glucose 87 Calcium 7.2 L Phosphorus 5.4 H Magnesium 2.1 Total Bilirubin 0.3 AST 14 L ALT 30 Alkaline Phosphatase 43 Total Protein 5.2 L Albumin 2.6 L Globulin 2.6 Albumin/Globulin Ratio 1.0 Blood Type Antibody Screen Review of Systems - Review of Systems All systems: reviewed and no additional remarkable complaints except - Genitourinary Genitourinary: Hematuria Critical Care Progress Note - Nutrition Nutrition: Nutrition Category Date Time Status Regular Diet [DIET] Diets 12/29/16 Lunch Active Assessment/Plan (1) Hematuria Assessment and plan: 56 Y/O M with PMHx of HTN, BPH and S/p CVA in 12/2011 with no residual weakness who presents to emergency department c/o hematuria s/p TURP ~1 month ago. Neuro: Alert and oriented 3 Pulm: No acute issues, breathing spontaneously on room air. CV: HTN, restarted on Labetalol. Hem: Anemia secondary to blood loss, transfused 3 units PRBC, 1 unit DEENA. anemia stable currently. Renal: Hematuria, (12/29) s/p cystoscopy with clot removal, irrigation, fulguration and then continued on CBI. Endo: No acute issues GI: low sodium diet. ID: No acute issues DVT proph - held with current bleed, SCDs GI proph - not currently indicated ellison for CBI Code status - full code Crtical Care Time spent 35 minutes Multi-disciplinary rounds were performed with house staff, nursing, speech therapy, respiratory therapy, pharmacy and nutrition with integrated input from the primary team/attending and other consulting services. The documented time is cumulative and includes review of patient data/exams/labs/chart review and examination of the patient on rounds and throughout the day; time is exclusive of any procedures or teaching time. Current Visit: Yes Status: Acute
--- NOTE | 2016-12-30 20:27 | CP.PCM.PN ---
Subjective - Date & Time of Evaluation Date of Evaluation: 12/30/16 Time of Evaluation: 16:00 - Subjective Subjective: Patient with history of CKD, BPH s/p TURP late last month, admitted with gross hematuria that started 2 days ago; Patient feels well, gives history of renal biopsy in the past; doesn't know his baseline creatinine when told his kidney function is about 20% he acknowledges being told this previously; last blood test prior to current admission was done by PMD Dr. Christelle Loo a couple of months ago, results not known; Objective - Vital Signs/Intake and Output Vital Signs (last 24 hours): Temp Pulse Resp BP Pulse Ox 98.7 F 79 12 163/85 H 97 12/30/16 16:00 12/30/16 20:05 12/30/16 20:05 12/30/16 20:05 12/30/16 20:05 Intake and Output: 12/30/16 12/31/16 18:59 06:59 Intake Total 26200 1450 Output Total 1660 50 Balance 55777 1400 - Medications Medications: Current Medications Finasteride (Proscar) 5 mg PO DAILY [facility] Last Admin: 12/30/16 09:27 Dose: 5 mg Sodium Chloride (Sodium Chloride 0.9%) 1,000 mls @ 100 mls/hr IV .Q10H [facility] Last Admin: 12/30/16 12:40 Dose: 100 mls/hr Ceftriaxone Sodium (Rocephin Iv 1 Gm Duplex) 50 mls @ 100 mls/hr IVPB Q24H [facility] Last Admin: 12/30/16 04:16 Dose: 100 mls/hr Labetalol HCl (Trandate) 200 mg PO BID [facility] Last Admin: 12/30/16 18:00 Dose: 200 mg Metoprolol Tartrate (Lopressor) 5 mg IVP Q6H [facility] Last Admin: 12/30/16 18:00 Dose: 5 mg Pantoprazole Sodium (Protonix Inj) 40 mg IVP DAILY [facility] Last Admin: 12/30/16 09:27 Dose: 40 mg Tamsulosin HCl (Flomax) 0.4 mg PO DAILY [facility] Last Admin: 12/30/16 09:27 Dose: 0.4 mg - Labs Labs: 12/30/16 06:11 12/30/16 06:15 PT 12.3 SECONDS (9.7-12.2) H 12/29/16 06:00 INR 1.1 12/29/16 06:00 APTT 26 SECONDS (21-34) 12/29/16 06:00 - Constitutional Appears: Well, No Acute Distress - Head Exam Head Exam: NORMAL INSPECTION - Eye Exam Eye Exam: Normal appearance. absent: Scleral icterus - ENT Exam ENT Exam: Mucous Membranes Moist - Neck Exam Neck Exam: Normal Inspection - Respiratory Exam Respiratory Exam: Clear to Ausculation Bilateral, NORMAL BREATHING PATTERN - Cardiovascular Exam Cardiovascular Exam: REGULAR RHYTHM, +S1, +S2 - GI/Abdominal Exam GI & Abdominal Exam: Soft. absent: Distended, Tenderness - Extremities Exam Additional comments: No leg edema - Neurological Exam Neurological Exam: Alert, Awake, Oriented x3 - Psychiatric Exam Psychiatric exam: Normal Affect, Normal Mood - Skin Skin Exam: Normal Color, Warm Assessment and Plan (1) HTN (hypertension) Assessment & Plan: On 4 BP meds at home, being restarted slowly here in setting of markedly gross hematuria; can likely restart amlodipine and imdur tomorrow, would hold on losartan for now; Status: Acute (2) Hematuria Assessment & Plan: Secondary to prostatic bleeding while on plavix; much improved s/p cysto with washout of clots and on CBI; will f/u with urology; Status: Acute (3) History of stroke Assessment & Plan: Reportedly last year but unclear history as patient and family deny having had any focal deficits; will ask family to request records from stroke hospitalization; Status: Acute (4) CKD (chronic kidney disease) stage 4, GFR 15-29 ml/min Assessment & Plan: CKD stage presumed, need accurate records from p[facility] including result of biopsy; Status: Acute (5) Anemia Assessment & Plan: Plavix held; s/p 3 u prbc and 1 u platelet, Hgb did not respond appropriately but is stable; monitor; Status: Acute
[2016-12-31] MEDS: cefTRIAXone IV 1 gm in Dextros 50 ML IVPB SCH (05:35)
[2016-12-31] MEDS: Sodium Chloride 0.9% 1,000 ML IV SCH ×3 (05:35→15:34)
[2016-12-31] MEDS: Metoprolol 1 mg/ml Inj IVP SCH ×3 (05:50→17:50)
[2016-12-31 06:27] LABS: BASO # 0.1 K/uL (0.0-0.2); BASO % 0.5 % (0.0-2.0); EOS # 0.4 K/uL (0.0-0.7); EOS % 3.7 % (0.0-4.0); HEMATOCRIT 22.1 % (35.0-51.0); LYMPH # 1.8 K/uL (1.0-4.3); LYMPH % 18.3 % (20.0-40.0); MEAN CELL VOLUME 80.1 fL (80.0-94.0); MEAN CORPUSCULAR HEMOGLOBIN 27.1 pg (27.0-31.0); MEAN CORPUSCULAR HGB CONC 33.8 g/dL (33.0-37.0); MEAN PLATELET VOLUME 7.4 fL (7.2-11.7); MONO # 0.9 K/uL (0.0-0.8); MONO % 8.6 % (0.0-10.0); RED CELL DISTRIBUTION WIDTH 15.4 % (11.5-14.5); WHITE BLOOD COUNT 9.9 K/uL (4.8-10.8)
[2016-12-31 06:40] LABS: CHLORIDE 104 mmol/L (98-107); POTASSIUM 4.2 mmol/L (3.6-5.2); SODIUM 139 mmol/L (132-148)
[2016-12-31 06:42] LABS: AST/SGOT 14 U/L (17-59); BILIRUBIN,TOTAL < 0.1 mg/dL (0.2-1.3); CARBON DIOXIDE 23 mmol/L (22-30); GFR AFRICAN-AMERICAN 27
[2016-12-31 06:43] LABS: ALB/GLOB RATIO 1.1 (1.0-2.1); ALKALINE PHOSPHATASE 44 U/L (38-126); ALT/SGPT 12 U/L (21-72); BLOOD UREA NITROGEN 41 mg/dL (9-20); CALCIUM 7.2 mg/dl (8.6-10.4); GLUCOSE,RANDOM 99 mg/dL (75-110); TOTAL PROTEIN 4.9 g/dL (6.3-8.3)
[2016-12-31 06:44] LABS: MAGNESIUM 2.1 mg/dL (1.6-2.3)
--- NOTE | 2016-12-31 06:46 | CARD ---
APPROVED REPORT EKG Measurement Heart [id number] <Conclusion> Normal sinus rhythm Abnormal QRS-T angle, consider primary T wave abnormality Abnormal ECG
--- NOTE | 2016-12-31 12:28 | CT ---
PROCEDURE: CT Abdomen and Pelvis without intravenous contrast HISTORY: when medically clear COMPARISON: None. TECHNIQUE: Without contrast.. Contrast Dose: 0 Radiation dose: Total exam DLP = 935.82 mGy-cm. FINDINGS: LOWER THORAX: Cardiomegaly. No infiltrate. LIVER: Unremarkable. No gross lesion or ductal dilatation. GALLBLADDER AND BILE DUCTS: Unremarkable. PANCREAS: Unremarkable. No gross lesion or ductal dilatation. SPLEEN: Unremarkable. ADRENALS: Unremarkable. No mass. KIDNEYS AND URETERS: Unremarkable. No hydronephrosis. No solid mass. VASCULATURE: Unremarkable. No aortic aneurysm. BOWEL: Mild retained feces. No bowel obstruction. APPENDIX: Unremarkable. Normal appendix. PERITONEUM: Unremarkable. No free fluid. No free air. LYMPH NODES: Unremarkable. No enlarged lymph nodes. BLADDER: Bladder contains high attenuation material intermixed with gas. High attenuation material likely reflect blood in the setting of known hematuria. The gas may be the result of Sifuentes catheterization. Sifuentes catheter balloon seen inflated at bladder base. REPRODUCTIVE: Normal prostate. BONES: No acute fracture. OTHER FINDINGS: None. IMPRESSION: High attenuation material within urinary bladder likely represents blood. This is intermixed with gas, most likely resulting from Sifuentes catheterization. Cardiomegaly. No other significant abnormality is identified.
--- NOTE | 2016-12-31 18:58 | CP.PCM.PN ---
Subjective - Date & Time of Evaluation Date of Evaluation: 12/31/16 Time of Evaluation: 14:00 - Subjective Subjective: Patient feeling well; tolerating diet; Objective - Vital Signs/Intake and Output Vital Signs (last 24 hours): Temp Pulse Resp BP Pulse Ox 98 F 73 15 161/87 H 95 12/31/16 04:00 12/31/16 18:03 12/31/16 18:03 12/31/16 18:03 12/31/16 15:03 Intake and Output: 12/31/16 12/31/16 06:59 18:59 Intake Total 3700 850 Output Total 2450 Balance 1250 850 - Medications Medications: Current Medications Amlodipine Besylate (Norvasc) 10 mg PO DAILY [facility] Finasteride (Proscar) 5 mg PO DAILY [facility] Last Admin: 12/31/16 10:34 Dose: 5 mg Sodium Chloride (Sodium Chloride 0.9%) 1,000 mls @ 100 mls/hr IV .Q10H [facility] Last Admin: 12/31/16 15:34 Dose: Not Given Labetalol HCl (Trandate) 200 mg PO BID [facility] Losartan Potassium (Cozaar) 25 mg PO DAILY [facility] Pantoprazole Sodium (Protonix Inj) 40 mg IVP DAILY [facility] Last Admin: 12/31/16 10:33 Dose: 40 mg Tamsulosin HCl (Flomax) 0.4 mg PO DAILY [facility] Last Admin: 12/31/16 10:35 Dose: 0.4 mg - Labs Labs: 12/31/16 06:18 12/31/16 06:18 PT 12.3 SECONDS (9.7-12.2) H 12/29/16 06:00 INR 1.1 12/29/16 06:00 APTT 26 SECONDS (21-34) 12/29/16 06:00 - Constitutional Appears: Well, No Acute Distress - Head Exam Head Exam: NORMAL INSPECTION - Eye Exam Eye Exam: Normal appearance. absent: Scleral icterus - ENT Exam ENT Exam: Mucous Membranes Moist - Neck Exam Neck Exam: Normal Inspection - Respiratory Exam Respiratory Exam: Clear to Ausculation Bilateral, NORMAL BREATHING PATTERN - Cardiovascular Exam Cardiovascular Exam: REGULAR RHYTHM, +S1, +S2 - GI/Abdominal Exam GI & Abdominal Exam: Soft. absent: Distended, Tenderness - Extremities Exam Additional comments: No leg edema - Neurological Exam Neurological Exam: Alert, Awake - Psychiatric Exam Psychiatric exam: Normal Affect, Normal Mood - Skin Skin Exam: Warm. absent: Cyanosis Assessment and Plan (1) HTN (hypertension) Assessment & Plan: Uncontrolled, will gradually restart home BP meds; adding norvasc 10 and losartan at 25 mg (on 100 mg at home); continue labetalol 200 mg bid; Status: Acute (2) Hematuria Assessment & Plan: More pronounced today after stopping CBI; will monitor; may need cystoscopy repeated; Status: Acute (3) History of stroke Assessment & Plan: Unclear if any actual focal deficit but was placed on plavix, currently stopped ; if bleeding subsides, should be on ASA 81 (can start as outpatient); Status: Acute (4) CKD (chronic kidney disease) stage 4, GFR 15-29 ml/min Assessment & Plan: Chronic per previous labs; etiology unknown; apparently no biopsy done ( erroneously mentioned in my note yesterday); will restart ARB; needs outpatient f/u; Status: Acute (5) Anemia Assessment & Plan: Hgb mildly lower today; will repeat cbc this evening and tranfuse if Hgb < 7; Status: Acute (6) Leukocytosis Assessment & Plan: On presentation, improved on ceftriaxone; no UA/culture done on admission but UTI assumed; will continue ceftriaxone; Status: Acute
[2016-12-31 19:41] LABS: BASO % 0.4 % (0.0-2.0); EOS # 0.3 K/uL (0.0-0.7); EOS % 2.9 % (0.0-4.0); HEMATOCRIT 22.8 % (35.0-51.0); LYMPH # 1.6 K/uL (1.0-4.3); LYMPH % 15.1 % (20.0-40.0); MEAN CELL VOLUME 80.6 fL (80.0-94.0); MEAN CORPUSCULAR HGB CONC 33.6 g/dL (33.0-37.0); MEAN PLATELET VOLUME 7.1 fL (7.2-11.7); MONO # 0.8 K/uL (0.0-0.8); MONO % 7.6 % (0.0-10.0); RED CELL DISTRIBUTION WIDTH 15.6 % (11.5-14.5); WHITE BLOOD COUNT 10.4 K/uL (4.8-10.8)
[2016-12-31 19:50] LABS: RBC URINE 10186 /hpf (0-3); URINE BILIRUBIN NEGATIVE (NEGATIVE); URINE BLOOD 2+ (NEGATIVE); URINE COLOR Red (YELLOW); URINE GLUCOSE (UA) NORMAL (Normal); URINE KETONE NEGATIVE (NEGATIVE); URINE LEUKOCYTE ESTERASE 2+ Leu/uL (Negative); URINE PROTEIN 2+ mg/dL (NEGATIVE); URINE UROBILINOGEN NORMAL mg/dL (0.2-1.0); WBC URINE 48 /hpf (0-5)
[2017-01-01 06:43] LABS: BASO % 0.4 % (0.0-2.0); EOS # 0.4 K/uL (0.0-0.7); EOS % 3.5 % (0.0-4.0); HEMATOCRIT 23.9 % (35.0-51.0); LYMPH # 1.8 K/uL (1.0-4.3); LYMPH % 15.6 % (20.0-40.0); MEAN CELL VOLUME 79.5 fL (80.0-94.0); MEAN CORPUSCULAR HEMOGLOBIN 26.7 pg (27.0-31.0); MEAN CORPUSCULAR HGB CONC 33.6 g/dL (33.0-37.0); MEAN PLATELET VOLUME 7.4 fL (7.2-11.7); MONO % 8.2 % (0.0-10.0); RED CELL DISTRIBUTION WIDTH 15.4 % (11.5-14.5); WHITE BLOOD COUNT 11.9 K/uL (4.8-10.8)
[2017-01-01 06:57] LABS: POTASSIUM 4.2 mmol/L (3.6-5.2)
[2017-01-01 06:59] LABS: BILIRUBIN,TOTAL 0.3 mg/dL (0.2-1.3); TOTAL PROTEIN 5.8 g/dL (6.3-8.3)
[2017-01-01 07:00] LABS: CALCIUM 8.2 mg/dl (8.6-10.4)
--- NOTE | 2017-01-01 13:25 | CP.PCM.PN ---
Subjective - Date & Time of Evaluation Date of Evaluation: 01/01/17 Time of Evaluation: 07:45 - Subjective Subjective: PGY [address] Stein: Patient was seen and examined at bedside this morning. Patient feels well. He denies complaints but his urine is still dark red. Sifuentes in place. He is tolerating his diet. Denies headache, changes in vision, abd pain, N/v, chest pain, palpitations, shortness of breath, pain or swelling in the extremities. Objective - Vital Signs/Intake and Output Vital Signs (last 24 hours): Temp Pulse Resp BP Pulse Ox 97.7 F 70 18 148/88 96 01/01/17 08:00 01/01/17 08:00 01/01/17 08:00 01/01/17 08:00 01/01/17 04:00 Intake and Output: 01/01/17 01/01/17 06:59 18:59 Intake Total 1310 Output Total 2150 Balance -840 - Medications Medications: Current Medications Amlodipine Besylate (Norvasc) 10 mg PO DAILY [facility] Last Admin: 01/01/17 09:54 Dose: 10 mg Finasteride (Proscar) 5 mg PO DAILY [facility] Last Admin: 01/01/17 09:54 Dose: 5 mg Ceftriaxone Sodium 1 gm/ (Sodium Chloride) 100 mls @ 100 mls/hr IVPB DAILY [facility] Last Admin: 01/01/17 09:56 Dose: 100 mls/hr Labetalol HCl (Trandate) 200 mg PO BID [facility] Last Admin: 01/01/17 11:25 Dose: 200 mg Losartan Potassium (Cozaar) 25 mg PO DAILY [facility] Last Admin: 01/01/17 09:54 Dose: 25 mg Pantoprazole Sodium (Protonix Inj) 40 mg IVP DAILY [facility] Last Admin: 01/01/17 09:54 Dose: 40 mg Tamsulosin HCl (Flomax) 0.4 mg PO DAILY [facility] Last Admin: 01/01/17 09:54 Dose: 0.4 mg - Labs Labs: 01/01/17 06:34 01/01/17 06:33 PT 12.3 SECONDS (9.7-12.2) H 12/29/16 06:00 INR 1.1 12/29/16 06:00 APTT 26 SECONDS (21-34) 12/29/16 06:00 - Constitutional Appears: Non-toxic, No Acute Distress - Head Exam Head Exam: ATRAUMATIC, NORMAL INSPECTION - Eye Exam Eye Exam: EOMI, Normal appearance, PERRL Pupil Exam: NORMAL ACCOMODATION - ENT Exam ENT Exam: Mucous Membranes Moist - Respiratory Exam Respiratory Exam: Clear to Ausculation Bilateral, NORMAL BREATHING PATTERN. absent: Respiratory Distress - Cardiovascular Exam Cardiovascular Exam: REGULAR RHYTHM, +S1, +S2 - GI/Abdominal Exam GI & Abdominal Exam: Soft, Normal Bowel Sounds. absent: Distended, Firm, Guarding, Tenderness - Exam Additional comments: Sifuentes in place draining dark red urine with clots - Extremities Exam Extremities Exam: Normal Inspection. absent: Calf Tenderness, Pedal Edema - Back Exam Back Exam: NORMAL INSPECTION. absent: CVA tenderness (L), CVA tenderness (R), paraspinal tenderness - Neurological Exam Neurological Exam: Alert, Awake, Oriented x3 - Psychiatric Exam Psychiatric exam: Normal Affect, Normal Mood - Skin Skin Exam: Dry, Intact, Normal Color, Warm Assessment and Plan - Assessment and Plan (Free Text) Assessment: (1) HTN (hypertension) Assessment & Plan: Uncontrolled, will gradually restart home BP meds; adding norvasc 10 and losartan at 25 mg (on 100 mg at home); continue labetalol 200 mg bid; Bp elevated in the AM, given 50mg Losaran. Will increase for tomorrow Status: Acute (2) Hematuria Assessment & Plan: More pronounced today after stopping CBI; will monitor; may need cystoscopy repeated; Will follow up with urology, Dr. Fischer regarding dispo plans Status: Acute (3) History of stroke Assessment & Plan: Unclear if any actual focal deficit but was placed on plavix, currently stopped ; if bleeding subsides, should be on ASA 81 (can start as outpatient); Status: Acute (4) CKD (chronic kidney disease) stage 4, GFR 15-29 ml/min Assessment & Plan: Chronic per previous labs; etiology unknown; apparently no biopsy done ( erroneously mentioned in my note yesterday); will restart ARB; needs outpatient f/u; Status: Acute (5) Anemia Assessment & Plan: Hgb mildly lower today; will repeat cbc this evening and tranfuse if Hgb < 7; Hbg today - 8, stable Status: Acute (6) Leukocytosis Assessment & Plan: On presentation, improved on ceftriaxone; no UA/culture done on admission but UTI assumed; will continue ceftriaxone; f/u repeat UA and culture, f/u blood cultures Status: Acute
[2017-01-01 15:13] LABS: RBC URINE 6469 /hpf (0-3); URINE BILIRUBIN NEGATIVE (NEGATIVE); URINE BLOOD 2+ (NEGATIVE); URINE GLUCOSE (UA) 1+ mg/dL (Normal); URINE KETONE 1+ mg/dL (NEGATIVE); URINE LEUKOCYTE ESTERASE NEG Leu/uL (Negative); URINE PROTEIN 2+ mg/dL (NEGATIVE)
[2017-01-01 15:14] LABS: URINE BACTERIA RARE (<OCC); URINE COLOR Red (YELLOW); WBC URINE 4 /hpf (0-5)
[2017-01-02 06:53] LABS: BASO # 0.1 K/uL (0.0-0.2); BASO % 0.8 % (0.0-2.0); EOS # 0.3 K/uL (0.0-0.7); EOS % 4.4 % (0.0-4.0); HEMATOCRIT 22.5 % (35.0-51.0); LYMPH # 1.6 K/uL (1.0-4.3); LYMPH % 21.5 % (20.0-40.0); MEAN CELL VOLUME 80.2 fL (80.0-94.0); MEAN CORPUSCULAR HEMOGLOBIN 27.7 pg (27.0-31.0); MEAN CORPUSCULAR HGB CONC 34.6 g/dL (33.0-37.0); MEAN PLATELET VOLUME 7.1 fL (7.2-11.7); MONO # 0.6 K/uL (0.0-0.8); MONO % 8.4 % (0.0-10.0); RED CELL DISTRIBUTION WIDTH 15.7 % (11.5-14.5); WHITE BLOOD COUNT 7.6 K/uL (4.8-10.8)
[2017-01-02 06:56] LABS: POTASSIUM 3.9 mmol/L (3.6-5.2)
[2017-01-02 06:58] LABS: ALB/GLOB RATIO 1.3 (1.0-2.1); BILIRUBIN,TOTAL 0.5 mg/dL (0.2-1.3); TOTAL PROTEIN 5.5 g/dL (6.3-8.3)
[2017-01-02 06:59] LABS: CALCIUM 7.5 mg/dl (8.6-10.4); MAGNESIUM 1.9 mg/dL (1.6-2.3)
[2017-01-02 12:48] LABS: IRON 37 ug/dL (49-181)
--- NOTE | 2017-01-02 15:18 | CP.PCM.PN ---
<Chanelle Beckford - Last Filed: 01/02/17 15:15> Subjective - Date & Time of Evaluation Date of Evaluation: 01/02/17 Time of Evaluation: 08:20 - Subjective Subjective: PGY [address] Almeida: Patient was seen and examined at bedside this morning. Patient feels well. He denies complaints and was doing exercises at bedside this morning. His ellison is still in place but still draining sanguineous urine. He denies dizziness or fatigue. He is tolerating his diet. Denies headache, changes in vision, abd pain , N/v, chest pain, palpitations, shortness of breath, pain or swelling in the extremities. Objective - Vital Signs/Intake and Output Vital Signs (last 24 hours): Temp Pulse Resp BP Pulse Ox 97.4 F L 65 16 149/62 100 01/02/17 08:00 01/02/17 08:00 01/02/17 08:00 01/02/17 08:00 01/02/17 08:00 Intake and Output: 01/02/17 01/02/17 06:59 18:59 Intake Total 1550 1400 Output Total 1200 1200 Balance 350 200 - Medications Medications: Current Medications Amlodipine Besylate (Norvasc) 10 mg PO DAILY [facility] Last Admin: 01/02/17 09:44 Dose: 10 mg Finasteride (Proscar) 5 mg PO DAILY [facility] Last Admin: 01/02/17 09:44 Dose: 5 mg Hydralazine HCl (Apresoline) 25 mg PO QID [facility] Last Admin: 01/02/17 13:33 Dose: 25 mg Ceftriaxone Sodium 1 gm/ (Sodium Chloride) 100 mls @ 100 mls/hr IVPB DAILY [facility] Last Admin: 01/02/17 09:44 Dose: 100 mls/hr Labetalol HCl (Trandate) 200 mg PO BID [facility] Pantoprazole Sodium (Protonix Inj) 40 mg IVP DAILY [facility] Last Admin: 01/02/17 09:44 Dose: 40 mg Rosuvastatin Calcium (Crestor) 10 mg PO HS [facility] Tamsulosin HCl (Flomax) 0.4 mg PO DAILY [facility] Last Admin: 01/02/17 09:43 Dose: 0.4 mg - Labs Labs: 01/02/17 06:30 01/02/17 06:30 PT 12.3 SECONDS (9.7-12.2) H 12/29/16 06:00 INR 1.1 12/29/16 06:00 APTT 26 SECONDS (21-34) 12/29/16 06:00 - Constitutional Appears: Non-toxic, No Acute Distress - Head Exam Head Exam: ATRAUMATIC, NORMAL INSPECTION - Eye Exam Eye Exam: EOMI, PERRL Pupil Exam: NORMAL ACCOMODATION - ENT Exam ENT Exam: Mucous Membranes Moist - Neck Exam Neck Exam: Full ROM - Respiratory Exam Respiratory Exam: Clear to Ausculation Bilateral, NORMAL BREATHING PATTERN. absent: Accessory Muscle Use, Rales, Rhonchi, Wheezes - Cardiovascular Exam Cardiovascular Exam: REGULAR RHYTHM, +S1, +S2 - GI/Abdominal Exam GI & Abdominal Exam: Soft, Normal Bowel Sounds. absent: Distended, Firm, Guarding, Tenderness - Exam Additional comments: ellison in place sanguineous urine draining - Extremities Exam Extremities Exam: Normal Inspection. absent: Calf Tenderness, Pedal Edema - Back Exam Back Exam: NORMAL INSPECTION. absent: CVA tenderness (L), CVA tenderness (R), paraspinal tenderness - Neurological Exam Neurological Exam: Alert, Awake, CN II-XII Intact, Oriented x3 Neuro motor strength exam: Left Upper Extremity: 5, Right Upper Extremity: 5, Left Lower Extremity: 5, Right Lower Extremity: 5 - Psychiatric Exam Psychiatric exam: Normal Affect, Normal Mood - Skin Skin Exam: Dry, Intact, Normal Color Assessment and Plan - Assessment and Plan (Free Text) Assessment: Hematuria Assessment & Plan: Elilson in place draining sanguineous urine More pronounced today after stopping CBI 2 days ago May need cystoscopy repeated; Will follow up with urology, Dr. Fischer regarding plans Has received 3 units total PRBC and 1 Unit platelets Hgb today 7.8, from 8 yesterday Will transfuse 1 unit PRBC and follow up CBC this afternoon f/u am labs Status: Acute HTN (hypertension) Assessment & Plan: Uncontrolled but improving Nnorvasc 10mg PO daily losartan at 100 mg PO daily Labetalol 200 mg PO BID Monitor BP Status: Acute Anemia Assessment & Plan: Hgb mildly lower today; will repeat cbc this evening and tranfuse if Hgb < 7; Hbg today - 8, stable f/u Fe studies, B12/folate, retic count History of stroke Assessment & Plan: Unclear if any actual focal deficit but was placed on plavix, currently stopped ; if bleeding subsides, should be on ASA 81 (can start as outpatient); Crestor 10mg PO HS Status: Acute CKD (chronic kidney disease) stage 4, GFR 15-29 ml/min Assessment & Plan: Chronic per previous labs; etiology unknown; apparently no biopsy done Status: Acute Leukocytosis Assessment & Plan: Resolved WBC 7.6, afebrile, denies fever/chills On presentation, improved on ceftriaxone; no UA/culture done on admission but UTI assumed Ceftriazone 1gm IVPB daily f/u repeat UA and culture 01/01 blood cultures - negative for 24 hours Status: Acute Prophylactic Measures Assessment & Plan: Protonix 40mg IVP daily No chemical anticoagulation due to hematuria, Patient is ambulating Heart healthy diet <Bernice Almeida V - Last Filed: 01/04/17 07:45> Objective - Vital Signs/Intake and Output Vital Signs (last 24 hours): Temp Pulse Resp BP Pulse Ox 98 F 80 20 144/74 97 01/04/17 07:21 01/04/17 07:21 01/04/17 07:21 01/04/17 07:21 01/04/17 07:21 Intake and Output: 01/04/17 01/04/17 06:59 18:59 Intake Total 1800 Output Total 3750 Balance -1950 - Medications Medications: Current Medications Amlodipine Besylate (Norvasc) 10 mg PO DAILY [facility] Last Admin: 01/03/17 10:09 Dose: 10 mg Finasteride (Proscar) 5 mg PO DAILY [facility] Last Admin: 01/03/17 10:09 Dose: 5 mg Hydralazine HCl (Apresoline) 25 mg PO QID [facility] Last Admin: 01/03/17 22:57 Dose: 25 mg Ceftriaxone Sodium 1 gm/ (Sodium Chloride) 100 mls @ 100 mls/hr IVPB DAILY [facility] Last Admin: 01/03/17 10:10 Dose: 100 mls/hr Labetalol HCl (Trandate) 200 mg PO BID [facility] Last Admin: 01/03/17 18:48 Dose: 200 mg Pantoprazole Sodium (Protonix Inj) 40 mg IVP DAILY [facility] Last Admin: 01/03/17 10:09 Dose: 40 mg Rosuvastatin Calcium (Crestor) 10 mg PO HS [facility] Last Admin: 01/03/17 22:56 Dose: 10 mg Tamsulosin HCl (Flomax) 0.4 mg PO DAILY [facility] Last Admin: 01/03/17 10:09 Dose: 0.4 mg - Labs Labs: 01/04/17 06:37 01/04/17 06:29 PT 12.3 SECONDS (9.7-12.2) H 12/29/16 06:00 INR 1.1 12/29/16 06:00 APTT 26 SECONDS (21-34) 12/29/16 06:00 Attending/Attestation - Attestation I have personally seen and examined this patient.: Yes I have fully participated in the care of the patient.: Yes I have reviewed all pertinent clinical information, including history, physical exam and plan: Yes Notes (Text): This is late computer entry for 01/02/17. Patient seen, examined and case discussed with day-time resident. Patient seen in ICU bed 18 awaiting bed on available medical floor. Jennifer ICU nurse assisting in translation given patient's primary language is Filipino. Patient reports he is doing okay. Patient denies prior bleeding abnormalities or bleeding problems prior to this hospitalization. Patient reports mild discomfort at the catheter site. Patient had CBI discontinued about 2 nights ago ; and per ellison bag appears to have dark gross hematuria. Patient underwent cystoscopy yesterday, no cautherization performed. Will f/u urology Assessment/Plan Hematuria Assessment & Plan: Ellison in place draining sanguineous urine; but ellison bag appears dark gross hematuria More pronounced today after stopping CBI 2 days ago Will follow up with urology, Dr. Jeromy Fischer further management Has received 3 units total PRBC and 1 Unit platelets during hospitalization; consents in the chart Hgb today 7.8, from 8 yesterday Will transfuse 1 unit PRBC and follow up CBC this afternoon, type and cross renewed monitor H/H Per discussion with nursing, had to flush ellison overnight, clotted Flomax 0.4mg PO daily Ct Abdomen and Pelvis (w/o PO and IV contrast) (12/31/16): high attenuation material within urinary bladder likely represents blood. Intermixed with gas, likely from Ellison catherization. Cardiomeglay. No other significant abnormality is identified, prostate normal Cystoscopy (12/29/16): cystoscopy and evacuation of clots, attempted fulguration no specific bleeding sites could be identified, washout of clots and insertion of Ellison catheter with CBI (prior hx of TURP_ Status: Acute HTN (hypertension) Assessment & Plan: Uncontrolled Nnorvasc 10mg PO daily Increased losartan at 100 mg PO this morning-->switched to Hydralazine 25mg PO QID given history of chronic kidney disease Labetalol 200 mg PO BID Monitor BP Status: Acute Anemia Assessment & Plan: acute blood loss secondary to hematuria; suspicion; patient also has history of chronic kidney disease Hgb: 7.8; concern for possible bleeding Will transfuse 1 unit of PRBC today and monitor CBC f/u Fe studies, B12/folate, retic count, stool occult blood, haptoglobin Note: patient has had blood transfusions during hospitalization; will unlikely be adequate representation of patient's baseline Urology on board History of stroke Assessment & Plan: Unclear if any actual focal deficit but was placed on plavix, currently stopped ; if bleeding subsides, should be on ASA 81 (can start as outpatient); Crestor 10mg PO HS Patient was on Plavix prior Blood pressure control including norvasc 10mg Po daily, Hydralazine 25mg PO QID , and Labetalol 200mg PO bid Status: Acute CKD (chronic kidney disease) stage 4, GFR 15-29 ml/min Assessment & Plan: Chronic per previous labs; etiology unknown; apparently no biopsy done Status: Acute Leukocytosis Assessment & Plan: normalized WBC 7.6, afebrile, denies fever/chills On presentation, improved on ceftriaxone; no UA/culture done on admission but UTI assumed Ceftriazone 1gm IVPB daily (Active since 01/01/17) f/u repeat UA and culture 01/01 blood cultures - negative for 24 hours Status: Acute Prophylactic Measures Assessment & Plan: Protonix 40mg IVP daily for GI ppx No chemical anticoagulation due to hematuria, Patient is ambulatory and pleasant. Heart healthy diet Ellison present
[2017-01-02 20:28] LABS: BASO # 0.1 K/uL (0.0-0.2); BASO % 0.6 % (0.0-2.0); EOS # 0.4 K/uL (0.0-0.7); EOS % 4.5 % (0.0-4.0); HEMATOCRIT 26.8 % (35.0-51.0); LYMPH # 1.6 K/uL (1.0-4.3); LYMPH % 17.5 % (20.0-40.0); MEAN CELL VOLUME 81.3 fL (80.0-94.0); MEAN CORPUSCULAR HEMOGLOBIN 26.9 pg (27.0-31.0); MEAN PLATELET VOLUME 6.7 fL (7.2-11.7); MONO # 0.8 K/uL (0.0-0.8); MONO % 8.4 % (0.0-10.0); RED CELL DISTRIBUTION WIDTH 15.7 % (11.5-14.5); WHITE BLOOD COUNT 9.2 K/uL (4.8-10.8)
[2017-01-03 06:25] LABS: BASO # 0.1 K/uL (0.0-0.2); BASO % 0.7 % (0.0-2.0); EOS # 0.4 K/uL (0.0-0.7); EOS % 4.5 % (0.0-4.0); HEMATOCRIT 27.7 % (35.0-51.0); LYMPH % 22.8 % (20.0-40.0); MEAN CELL VOLUME 80.2 fL (80.0-94.0); MEAN CORPUSCULAR HEMOGLOBIN 27.2 pg (27.0-31.0); MEAN CORPUSCULAR HGB CONC 33.9 g/dL (33.0-37.0); MEAN PLATELET VOLUME 6.8 fL (7.2-11.7); MONO # 0.8 K/uL (0.0-0.8); MONO % 8.5 % (0.0-10.0); RED CELL DISTRIBUTION WIDTH 15.4 % (11.5-14.5); WHITE BLOOD COUNT 8.8 K/uL (4.8-10.8)
[2017-01-03 06:35] LABS: POTASSIUM 4.1 mmol/L (3.6-5.2)
[2017-01-03 06:37] LABS: ALB/GLOB RATIO 1.1 (1.0-2.1); BILIRUBIN,TOTAL 0.3 mg/dL (0.2-1.3); CALCIUM 8.4 mg/dl (8.6-10.4); PHOSPHOROUS 4.4 mg/dL (2.5-4.5); TOTAL PROTEIN 6.4 g/dL (6.3-8.3)
[2017-01-03 06:38] LABS: MAGNESIUM 2.1 mg/dL (1.6-2.3)
--- NOTE | 2017-01-03 14:24 | CP.PCM.PN ---
<Chanelle Beckford - Last Filed: 01/03/17 17:49> Subjective - Date & Time of Evaluation Date of Evaluation: 01/03/17 Time of Evaluation: 07:15 - Subjective Subjective: PGY [address] Almeida: Patient seen and examined at bedside this morning. He states that he slept well during the night and feels "even better" today. Patient states that he has a good appetite and has been having bowel movements. He has been ambulating and stretching in his room frequently. He explained that he saw Dr. Jeromy Fischer earlier in the morning and understands that he would like to see him as an outpatient this Sunday. He denies fever, chills, headache, dizziness, sob, palpitations, abdominal pain, swelling, numbness, and tingling. Per nursing the patient has still been clotting in his ellison and the urine draining is still sanguineous. Objective - Vital Signs/Intake and Output Vital Signs (last 24 hours): Temp Pulse Resp BP Pulse Ox 97.5 F L 70 18 165/65 H 100 01/03/17 08:00 01/03/17 08:00 01/03/17 04:00 01/03/17 04:00 01/02/17 08:00 Intake and Output: 01/03/17 01/03/17 06:59 18:59 Intake Total 500 1000 Output Total 200 2800 Balance 300 -1800 - Medications Medications: Current Medications Amlodipine Besylate (Norvasc) 10 mg PO DAILY [facility] Last Admin: 01/03/17 10:09 Dose: 10 mg Finasteride (Proscar) 5 mg PO DAILY [facility] Last Admin: 01/03/17 10:09 Dose: 5 mg Hydralazine HCl (Apresoline) 25 mg PO QID [facility] Last Admin: 01/03/17 13:42 Dose: 25 mg Ceftriaxone Sodium 1 gm/ (Sodium Chloride) 100 mls @ 100 mls/hr IVPB DAILY [facility] Last Admin: 01/03/17 10:10 Dose: 100 mls/hr Labetalol HCl (Trandate) 200 mg PO BID [facility] Last Admin: 01/03/17 10:09 Dose: 200 mg Pantoprazole Sodium (Protonix Inj) 40 mg IVP DAILY [facility] Last Admin: 01/03/17 10:09 Dose: 40 mg Rosuvastatin Calcium (Crestor) 10 mg PO HS [facility] Last Admin: 01/02/17 21:06 Dose: 10 mg Tamsulosin HCl (Flomax) 0.4 mg PO DAILY [facility] Last Admin: 01/03/17 10:09 Dose: 0.4 mg - Labs Labs: 01/03/17 06:22 01/03/17 06:22 PT 12.3 SECONDS (9.7-12.2) H 12/29/16 06:00 INR 1.1 12/29/16 06:00 APTT 26 SECONDS (21-34) 12/29/16 06:00 - Constitutional Appears: Non-toxic, No Acute Distress - Head Exam Head Exam: ATRAUMATIC, NORMAL INSPECTION - Eye Exam Eye Exam: EOMI, Normal appearance, PERRL Pupil Exam: NORMAL ACCOMODATION - ENT Exam ENT Exam: Mucous Membranes Moist - Respiratory Exam Respiratory Exam: Clear to Ausculation Bilateral, NORMAL BREATHING PATTERN. absent: Accessory Muscle Use, Chest Wall Tenderness, Respiratory Distress - Cardiovascular Exam Cardiovascular Exam: REGULAR RHYTHM, +S1, +S2 - GI/Abdominal Exam GI & Abdominal Exam: Soft. absent: Distended, Firm, Guarding, Tenderness - Exam Additional comments: Ellison in place, sanguineous urine in bag - Extremities Exam Extremities Exam: Normal Inspection. absent: Calf Tenderness, Pedal Edema - Back Exam Back Exam: NORMAL INSPECTION. absent: CVA tenderness (L), CVA tenderness (R), paraspinal tenderness - Neurological Exam Neurological Exam: Alert, Awake, CN II-XII Intact, Oriented x3 Neuro motor strength exam: Left Upper Extremity: 5, Right Upper Extremity: 5, Left Lower Extremity: 5, Right Lower Extremity: 5 - Psychiatric Exam Psychiatric exam: Normal Affect, Normal Mood - Skin Skin Exam: Dry, Normal Color, Warm. absent: Pallor Assessment and Plan - Assessment and Plan (Free Text) Assessment: Hematuria Assessment & Plan: Ellison in place draining sanguineous urine Will follow up with urology, Dr. Fischer regarding plans - was ready for DC today and to follow up on Sunday outpatient but patient still clotting in the ellison Has received 4 units total PRBC and 1 Unit platelets Hgb today 9.8 f/u am labs Status: Acute HTN (hypertension) Assessment & Plan: Uncontrolled but improving Norvasc 10mg PO daily Hydralazine 25 mg PO daily Labetalol 200 mg PO BID Monitor BP Status: Acute Anemia Assessment & Plan: s/p PRBC 1 unit yesterday Hbg today - 9.8, stable Retic count 3.1 Fe 37, TIBC 282, %sat 12, Ferritin 23.2 B12 374, Folate 647 f/u FOBT History of stroke Assessment & Plan: Unclear if any actual focal deficit but was placed on plavix, currently stopped ; if bleeding subsides, should be on ASA 81 (can start as outpatient); Crestor 10mg PO HS Status: Acute CKD (chronic kidney disease) stage 4, GFR 15-29 ml/min Assessment & Plan: Chronic per previous labs; etiology unknown; apparently no biopsy done Status: Acute Leukocytosis Assessment & Plan: Resolved WBC 7.6, afebrile, denies fever/chills On presentation, improved on ceftriaxone; no UA/culture done on admission but UTI assumed Ceftriazone 1gm IVPB daily f/u repeat UA and culture 01/01 blood cultures - negative for 24 hours Status: Acute Prophylactic Measures Assessment & Plan: Protonix 40mg IVP daily No chemical anticoagulation due to hematuria, Patient is ambulating Heart healthy diet <Bernice Almeida V - Last Filed: 01/04/17 07:52> Objective - Vital Signs/Intake and Output Vital Signs (last 24 hours): Temp Pulse Resp BP Pulse Ox 98 F 80 20 144/74 97 01/04/17 07:21 01/04/17 07:21 01/04/17 07:21 01/04/17 07:21 01/04/17 07:21 Intake and Output: 01/04/17 01/04/17 06:59 18:59 Intake Total 1800 Output Total 3750 Balance -1950 - Medications Medications: Current Medications Amlodipine Besylate (Norvasc) 10 mg PO DAILY [facility] Last Admin: 01/03/17 10:09 Dose: 10 mg Finasteride (Proscar) 5 mg PO DAILY [facility] Last Admin: 01/03/17 10:09 Dose: 5 mg Hydralazine HCl (Apresoline) 25 mg PO QID [facility] Last Admin: 01/03/17 22:57 Dose: 25 mg Ceftriaxone Sodium 1 gm/ (Sodium Chloride) 100 mls @ 100 mls/hr IVPB DAILY [facility] Last Admin: 01/03/17 10:10 Dose: 100 mls/hr Labetalol HCl (Trandate) 200 mg PO BID [facility] Last Admin: 01/03/17 18:48 Dose: 200 mg Pantoprazole Sodium (Protonix Inj) 40 mg IVP DAILY [facility] Last Admin: 01/03/17 10:09 Dose: 40 mg Rosuvastatin Calcium (Crestor) 10 mg PO HS [facility] Last Admin: 01/03/17 22:56 Dose: 10 mg Tamsulosin HCl (Flomax) 0.4 mg PO DAILY [facility] Last Admin: 01/03/17 10:09 Dose: 0.4 mg - Labs Labs: 01/04/17 06:37 01/04/17 06:29 PT 12.3 SECONDS (9.7-12.2) H 12/29/16 06:00 INR 1.1 12/29/16 06:00 APTT 26 SECONDS (21-34) 12/29/16 06:00 Attending/Attestation - Attestation I have personally seen and examined this patient.: Yes I have fully participated in the care of the patient.: Yes I have reviewed all pertinent clinical information, including history, physical exam and plan: Yes Notes (Text): This is late computer entry for 01/03/17. Patient seen, examined and case discussed with day-time resident. Patient seen in ICU Bed 18. Patient is pleasant, ambulatory, and eager to do home. Patient repeated that he was instructed by Dr. Fischer to follow-up at his office on Sunday regarding further management. Discussed with nursing staff and case management, patient is not eligible for service regarding the ellison, and nursing staff is continuously flushing the ellison close to every hour given he is clotting quite a bit. Patient and daughter are open to learning how to manage but concern is he is clotting quite a bit too frequently. Per discussion with case management, maybe a person would come once a day to assist with ellison but clots quite too frequently to safe discharge him. Will follow-up with urology. Patient is off Plavix/Aspirin at this time given his hematuria. Patient's hgb improved to 9.8 s/p 1 unit of PRBC overnight, ellison bag appears better. Assessment/Plan Hematuria Assessment & Plan: Ellison in place More pronounced today after stopping CBI 3 days ago Will follow up with urology, Dr. Jeromy Fischer further management Has received 4 units total PRBC and 1 Unit platelets during hospitalization; consents in the chart monitor H/H Per discussion with nursing today, patient's ellison continues to clot close to every hour prompted them to flush the ellison quite a bit Patient no eligible for daily ellison nursing services per discussion with case management; patient and daughter are open to learning how to do it Flomax 0.4mg PO daily Ct Abdomen and Pelvis (w/o PO and IV contrast) (12/31/16): high attenuation material within urinary bladder likely represents blood. Intermixed with gas, likely from Ellison catherization. Cardiomeglay. No other significant abnormality is identified, prostate normal Cystoscopy (12/29/16): cystoscopy and evacuation of clots, attempted fulguration no specific bleeding sites could be identified, washout of clots and insertion of Ellison catheter with CBI (prior hx of TURP Urology (Dr. Jeromy Fischer) following-->help appreciated Status: Acute HTN (hypertension) Assessment & Plan: Better controlled Nnorvasc 10mg PO daily c/w Hydralazine 25mg PO QID given history of chronic kidney disease Labetalol 200 mg PO BID Monitor BP Status: Acute Anemia Assessment & Plan: acute blood loss secondary to hematuria; suspicion; patient also has history of chronic kidney disease Low iron, low iron saturation, normal TIBC B12/folate: normal, retic count: elevated, stool occult blood pending (per urology note rectal was performed prio ), haptoglobin elevated Note: patient has had blood transfusions during hospitalization; will unlikely be adequate representation of patient's baseline Urology on board No prior bleeding problems per patient History of stroke Assessment & Plan: Unclear if any actual focal deficit but was placed on plavix, currently stopped ; if bleeding subsides, should be on ASA 81 (can start as outpatient) Crestor 10mg PO HS Patient was on Plavix prior Blood pressure control including norvasc 10mg Po daily, Hydralazine 25mg PO QID , and Labetalol 200mg PO bid Status: Acute CKD (chronic kidney disease) stage 4, GFR 15-29 ml/min Assessment & Plan: Chronic per previous labs; etiology unknown; apparently no biopsy done Status: Acute Leukocytosis Assessment & Plan: normalized On presentation, improved on ceftriaxone; no UA/culture done on admission but UTI assumed Ceftriazone 1gm IVPB daily (Active since 01/01/17) Urine culture shows no growth 01/01 blood cultures - negative for 48 hours X2 Status: Acute Prophylactic Measures Assessment & Plan: Protonix 40mg IVP daily for GI ppx No chemical anticoagulation due to hematuria, Patient is ambulatory and pleasant. Heart healthy diet Ellison present f/u case management f/u nursing staff given frequency of clotting
[2017-01-04 06:35] VITALS: RESP 20
[2017-01-04 06:43] LABS: BASO # 0.1 K/uL (0.0-0.2); BASO % 0.6 % (0.0-2.0); EOS # 0.3 K/uL (0.0-0.7); EOS % 3.7 % (0.0-4.0); HEMATOCRIT 27.8 % (35.0-51.0); LYMPH # 1.9 K/uL (1.0-4.3); LYMPH % 20.4 % (20.0-40.0); MEAN CELL VOLUME 79.9 fL (80.0-94.0); MEAN CORPUSCULAR HEMOGLOBIN 26.8 pg (27.0-31.0); MEAN CORPUSCULAR HGB CONC 33.5 g/dL (33.0-37.0); MEAN PLATELET VOLUME 7.2 fL (7.2-11.7); MONO # 0.8 K/uL (0.0-0.8); MONO % 8.5 % (0.0-10.0); NRBC % 0.1 % (0.0-2.0); RED CELL DISTRIBUTION WIDTH 15.7 % (11.5-14.5); WHITE BLOOD COUNT 9.3 K/uL (4.8-10.8)
[2017-01-04 06:52] LABS: POTASSIUM 4.9 mmol/L (3.6-5.2)
[2017-01-04 06:54] LABS: BILIRUBIN,TOTAL 0.2 mg/dL (0.2-1.3)
[2017-01-04 06:55] LABS: ALB/GLOB RATIO 1.3 (1.0-2.1); CALCIUM 8.3 mg/dl (8.6-10.4); MAGNESIUM 2.3 mg/dL (1.6-2.3); PHOSPHOROUS 4.6 mg/dL (2.5-4.5); TOTAL PROTEIN 6.3 g/dL (6.3-8.3)
[2017-01-04 17:05] VITALS: BP 181/95; PULSE 81; TEMP 97.5; O2SAT 96
--- NOTE | 2017-01-04 19:25 | CP.PCM.DIS ---
Provider - Provider Date of Admission: 12/29/16 00:46 Attending physician: Kaleb Weston MD Hospital Course - Lab Results Lab Results: Micro Results 01/01/17 14:00 Blood-Venous Blood Culture - Preliminary NO GROWTH AFTER 3 DAYS 01/01/17 14:30 Blood-Venous Blood Culture - Preliminary NO GROWTH AFTER 3 DAYS 01/01/17 13:17 Urine Urine Culture - Final No Growth (<1,000 CFU/ML) 12/29/16 03:42 Nose MRSA Culture (Admit) - Final MRSA NOT DETECTED Most Recent Lab Values WBC 9.3 K/uL (4.8-10.8) 01/04/17 06:37 RBC 3.48 Mil/uL (4.40-5.90) L 01/04/17 06:37 Hgb 9.3 g/dL (12.0-18.0) L 01/04/17 06:37 Hct 27.8 % (35.0-51.0) L 01/04/17 06:37 MCV 79.9 fL (80.0-94.0) L 01/04/17 06:37 MCH 26.8 pg (27.0-31.0) L 01/04/17 06:37 MCHC 33.5 g/dL (33.0-37.0) 01/04/17 06:37 RDW 15.7 % (11.5-14.5) H 01/04/17 06:37 Plt Count 223 K/uL (130-400) 01/04/17 06:37 MPV 7.2 fL (7.2-11.7) 01/04/17 06:37 Neut % (Auto) 66.8 % (50.0-75.0) 01/04/17 06:37 Lymph % (Auto) 20.4 % (20.0-40.0) 01/04/17 06:37 Mck[place] % (Auto) 8.5 % (0.0-10.0) 01/04/17 06:37 Eos % (Auto) 3.7 % (0.0-4.0) 01/04/17 06:37 Baso % (Auto) 0.6 % (0.0-2.0) 01/04/17 06:37 Neut # 6.2 K/uL (1.8-7.0) 01/04/17 06:37 Lymph # 1.9 K/uL (1.0-4.3) 01/04/17 06:37 Mckenzie # 0.8 K/uL (0.0-0.8) 01/04/17 06:37 Eos # 0.3 K/uL (0.0-0.7) 01/04/17 06:37 Baso # 0.1 K/uL (0.0-0.2) 01/04/17 06:37 Neutrophils % (Manual) 90 % (50-75) H 12/29/16 12:15 Band Neutrophils % 1 % (0-2) 12/29/16 12:15 Lymphocytes % (Manual) 7 % (20-40) L 12/29/16 12:15 Monocytes % (Manual) 1 % (0-10) 12/29/16 12:15 Eosinophils % (Manual) 1 % (0-4) 12/29/16 12:15 Basophils % (Manual) 1 % (0-2) 12/29/16 06:00 Platelet Estimate Normal (NORMAL) 12/29/16 12:15 Poikilocytosis (manual Slight 12/29/16 12:15 Anisocytosis (manual) Slight 12/29/16 12:15 Ovalocytes Slight 12/29/16 12:15 [place] Cells Slight 12/29/16 06:00 Retic Count 3.1 % (0.5-1.5) H 01/02/17 12:32 Haptoglobin 235 mg/dL (43-212) H 01/02/17 12:32 PT 12.3 SECONDS (9.7-12.2) H 12/29/16 06:00 INR 1.1 12/29/16 06:00 APTT 26 SECONDS (21-34) 12/29/16 06:00 Plt Function Assay 81 K/uL 12/29/16 10:01 Sodium 135 mmol/L (132-148) 01/04/17 06:29 Potassium 4.9 mmol/L (3.6-5.2) 01/04/17 06:29 Chloride 95 mmol/L (98-107) L 01/04/17 06:29 Carbon Dioxide 25 mmol/L (22-30) 01/04/17 06:29 Anion Gap 20 (10-20) 01/04/17 06:29 BUN 37 mg/dL (9-20) H 01/04/17 06:29 Creatinine 2.8 MG/DL (0.8-1.5) H 01/04/17 06:29 Est GFR ( Amer) 28 01/04/17 06:29 Est GFR (Non-Af Amer) 23 01/04/17 06:29 Random Glucose 86 mg/dL (75-110) 01/04/17 06:29 Calcium 8.3 mg/dl (8.6-10.4) L 01/04/17 06:29 Phosphorus 4.6 mg/dL (2.5-4.5) H 01/04/17 06:29 Magnesium 2.3 mg/dL (1.6-2.3) 01/04/17 06:29 Iron 37 ug/dL (49-181) L 01/02/17 12:32 TIBC 282 ug/dL (250-450) 01/02/17 12:32 % Saturation 13 (20-55) L 01/02/17 12:32 Ferritin 23.2 ng/mL 01/02/17 12:32 Total Bilirubin 0.2 mg/dL (0.2-1.3) 01/04/17 06:29 AST 27 U/L (17-59) 01/04/17 06:29 ALT 19 U/L (21-72) L D 01/04/17 06:29 Alkaline Phosphatase 68 U/L (38-126) 01/04/17 06:29 Total Protein 6.3 g/dL (6.3-8.3) 01/04/17 06:29 Albumin 3.5 g/dL (3.5-5.0) 01/04/17 06:29 Globulin 2.8 gm/dL (2.2-3.9) 01/04/17 06:29 Albumin/Globulin Ratio 1.3 (1.0-2.1) 01/04/17 06:29 Vitamin B12 374 pg/mL (239-931) 01/02/17 12:32 RBC Folate 647 ng/mL RBC (>280) 01/02/17 12:32 Urine Color Red (YELLOW) 01/01/17 14:45 Urine Clarity Turbid (Clear) 01/01/17 14:45 Urine pH 5.0 (5.0-8.0) 01/01/17 14:45 Ur Specific [place] 1.011 (1.003-1.030) 01/01/17 14:45 Urine Protein 2+ mg/dL (NEGATIVE) H 01/01/17 14:45 Urine Glucose (UA) 1+ mg/dL (Normal) H 01/01/17 14:45 Urine Ketones 1+ mg/dL (NEGATIVE) H 01/01/17 14:45 Urine Blood 2+ (NEGATIVE) H 01/01/17 14:45 Urine Nitrate Negative (NEGATIVE) 01/01/17 14:45 Urine Bilirubin Negative (NEGATIVE) 01/01/17 14:45 Urine Urobilinogen 2.0 mg/dL (0.2-1.0) 01/01/17 14:45 Ur Leukocyte Esterase Neg Maribel/uL (Negative) 01/01/17 14:45 Urine WBC (Auto) 4 /hpf (0-5) 01/01/17 14:45 Urine RBC (Auto) 6469 /hpf (0-3) H 01/01/17 14:45 Urine WBC Clumps (Auto) None /hpf (NONE) 01/01/17 14:45 Urine Bacteria Rare (<OCC) 01/01/17 14:45 Blood Type O POSITIVE 01/02/17 11:43 Antibody Screen Negative 01/02/17 11:43 - Hospital Course Hospital Course: On admission: PAtient is a 56 year old male who presents to emergency department c/o hematuria and urinary retention. He reports TURP 1 month ago for enlargement of prostate causing occasional urinary retention. Patient reports slight hematuria after TURP procedure which resolved "a few days after the procedure." He reports sudden return of hematuria this evening. Patient states he then suddenly was unable to urinate, and this made him come to the ED. Patient also c/o mild lower abdominal pain, that improved with ellison placement. Patient was recently restarted on Plavix, which he has been on since stroke in . Pt had been off Plavix after surgery but restarted last week. He otherwise, denies fever, chills, nausea, vomiting, diarrhea, or other associated symptoms. Patient is stable for discharge home today per Urology. Patient is to follow up with Dr. Jeromy Fischer tomorrow (01/05/2017) at 12oclock/noon at his [place] office. ([id number] [facility] [phone]). Patient is to have nursing services come to his house for Ellison care. Patient is to irrigate his ellison 2-3 times a day as he was shown in the hospital. Patient is to follow up with his primary care doctor within one week of discharge. Patient is not to take Plavix or Aspirin until instructed by his doctor due to bleeding in the urine/bladder. Patient is to resume his home medications. Patient is to return to the ED if his symptoms persist or worsen. All instructions explained to the patient and he agrees. Patient is to take the following medications: 1. Flomax 0.4 mg one by mouth daily 2. Labetolol 100mg two by mouth twice a day 3. Finesteride 5mg one by mouth daily 4. Amlodipine 5mg one by mouth daily 5. Hydralazine 25mg one by mouth four times a day Discharge Exam - Head Exam Head Exam: ATRAUMATIC, NORMAL INSPECTION Discharge Plan - Discharge Medications Prescriptions: Tamsulosin [Flomax] 0.4 mg PO DAILY #30 cap amLODIPine [Norvasc] 10 mg PO BID #30 tab Finasteride [Proscar] 5 mg PO DAILY #30 tab Labetalol [Trandate] 200 mg PO BID #120 tab - Follow Up Plan Condition: SERIOUS Disposition: HOME/ ROUTINE Instructions: Labetalol (By mouth), Finasteride (By mouth), Amlodipine (By mouth), Tamsulosin (By mouth), Acute Hematuria (DC) Additional Instructions: Patient is stable for discharge home today per Urology. Patient is to follow up with Dr. Jeromy Fischer tomorrow (01/05/2017) at 12oclock/noon at [facility]. ([id number] [facility] [phone]). Patient is to have nursing services come to his house for Ellison care. Patient is to irrigate his ellison 2-3 times a day as he was shown in the hospital. Patient is to follow up with his primary care doctor within one week of discharge. Patient is not to take Plavix or Aspirin until instructed by his doctor due to bleeding in the urine/bladder. Patient is to resume his home medications. Patient is to return to the ED if his symptoms persist or worsen. All instructions explained to the patient and he agrees. Patient is to take the following medications: 1. Flomax 0.4 mg one by mouth daily 2. Labetolol 100mg two by mouth twice a day 3. Finesteride 5mg one by mouth daily 4. Amlodipine 5mg one by mouth daily 5. Hydralazine 25mg one by mouth four times a day Referrals: Haider Fischer MD [Staff Provider] -
== END 2017-01-04 16:55 | disposition home or self-care (01) | DRG 921 ==
LOC: C.ER 22:49 → C.9I 12-29 00:46 → C.3T 01-04 06:31
PROVIDERS: ADMIT Internal Medicine; ATTEND Internal Medicine
PROC: 0T2BX0Z Change Drainage Device in Bladder, External Approach (ICD-10-PCS; 2016-12-29)
PROC: 30233N1 Transfusion of Nonautologous Red Blood Cells into Peripheral Vein, Percutaneous Approach (ICD-10-PCS; 2016-12-29)
PROC: 0TCB8ZZ Extirpation of Matter from Bladder, Via Natural or Artificial Opening Endoscopic (ICD-10-PCS; principal; 2016-12-29 13:00)
DX: N99.820 Postprocedural hemorrhage of a genitourinary system organ or structure following a genitourinary system procedure (principal); R31.0 Gross hematuria; N40.1 Benign prostatic hyperplasia with lower urinary tract symptoms; R33.8 Other retention of urine; D64.9 Anemia, unspecified; N42.1 Congestion and hemorrhage of prostate; I12.9 Hypertensive chronic kidney disease with stage 1 through stage 4 chronic kidney disease, or unspecified chronic kidney disease; K59.00 Constipation, unspecified; E78.5 Hyperlipidemia, unspecified; N18.9 Chronic kidney disease, unspecified; M19.90 Unspecified osteoarthritis, unspecified site; E78.00 Pure hypercholesterolemia, unspecified; Z79.02 Long term (current) use of antithrombotics/antiplatelets; Z86.73 Personal history of transient ischemic attack (TIA), and cerebral infarction without residual deficits